=== PATIENT | male | born 1950 | race Caucasian/White ===

== ENCOUNTER 2018-01-09 12:45 | Inpatient (IN) | payer OTHER, MEDICARE ==
[2018-01-09 13:37] LABS: #Basophils 0.1 thou/uL (0.0-0.2); #Lymphocytes 0.5 thou/uL (1.20-3.40); #Monocytes 0.5 thou/uL (0.11-0.59); #Neutrophils 3.7 thou/uL (1.40-6.50); %Basophils 1.1 % (0.0-1.0); %Eosinophils 0.2 % (0.0-10.0); %Lymphocytes 10.7 % (21.0-51.0); %Monocytes 10.1 % (0.0-10.0); %Neutrophils 77.8 % (42.0-75.0); Hemoglobin 11.7 g/dL (14.0-18.0); Mean Corpuscular HGB CONC 31.9 g/dL (32.0-36.0); Mean Corpuscular Hemoglobin 24.4 pg (27.0-31.0); Mean Corpuscular Volume 76.3 fl (80.0-94.0); Mean Platelet Volume 10.5 fL (7.4-10.4); Platelet Count 151 thou/uL (130-400); RBC Distribution Width 17.2 % (11.5-14.5); White Blood Cell (WBC) Count 4.8 thou/uL (4.8-10.8)
[2018-01-09 13:47] LABS: ALT (SGPT) 33 U/L (8-55); AST (SGOT) 41 U/L (5-34); Albumin 3.4 g/dL (3.4-4.8); Alkaline Phosphatase 124 U/L (40-150); Anion Gap 14 mmol/L (10-20); BUN (Urea Nitrogen) 11 mg/dL (8.4-25.7); Bilirubin, Total 0.6 mg/dL (0.2-1.2); Calc. Creatinine Clearance 0 mL/min (70-130); Calcium 8.6 mg/dL (7.8-10.44); Carbon Dioxide 21 mmol/L (23-31); Chloride 105 mmol/L (98-107); Estimated GFR-MDRD Greater than 90; Globulin 3.9 g/dL (2.4-3.5); Glucose 161 mg/dL (80-115); Lipase 33 U/L (8-78); Potassium 3.6 mmol/L (3.5-5.1); Protein, Total 7.3 g/dL (5.8-8.1); Sodium 136 mmol/L (136-145)
--- NOTE | 2018-01-09 15:54 | CT ---
CT OF THE ABDOMEN AND PELVIS WITH IV CONTRAST: INDICATION: Abdominal pain with distention. FINDINGS: There is a large right pleural effusion and right basilar atelectasis. There is cirrhotic morphology of the liver with changes of portal hypertension. The spleen measures 14 cm. There is scattered ascites. Pancreas and adrenal glands appear within normal limits. The ki dneys are normal appearing. The degree of ascites slightly limits evaluation of bowel wall thickenin g. There are no overt changes of bowel obstruction. There is scattered degenerative and osteoarthritic change. No definite acute osseous abnormality is evident. IMPRESSION: 1. Findings of cirrhosis with portal hypertension. There is mild ascites. 2. Large right pleural effusion with right basilar atelectasis. POS: [facility]
[2018-01-09 16:29] LABS: Bilirubin Negative (Negative); Blood, Urine Negative (Negative); Clarity CLEAR (Clear); Glucose, Urine (Dipstick) Negative (Negative); Leukocyte Negative (Negative); Nitrite Negative (Negative); Protein, Urine (Dipstick) Negative (Neg-Trace); Urobilinogen 0.2 mg/dL (0.2-1.0); pH, Urine 6.5 (5.0-9.0)
[2018-01-09] MEDS ORDERED: Furosemide 40 MG/4 ML VIAL SLOW IVP SCH (20:00)
[2018-01-09] MEDS ORDERED: Dextrose 5% in Water 1,000 ML IV PRN (21:55)
[2018-01-09] MEDS ORDERED: HumaLOG 300 UNITS/3 ML VIAL SC PRN (21:55)
[2018-01-09] MEDS ORDERED: Dextrose 50% Abboject 50 ML SYRINGE SLOW IVP PRN (21:55)
[2018-01-10 00:22] VITALS: BMI 23.8
--- NOTE | 2018-01-10 02:22 | HP ---
PRIMARY CARE PHYSICIAN: Dr. Peralta. TIME OF EVALUATION: 9:35 p.m. CODE STATUS: FULL CODE. CHIEF COMPLAINT: "I passed out." HISTORY OF PRESENT ILLNESS: A 67-year-old male with past medical history of hepatitis, cirrhosis of the liver, patient came to the hospital after having 6 weeks of intermittent diarrhea. These symptoms were reported as moderate-to- severe, patient reported that yesterday he had an episode of feeling dizzy and almost passing out, the patient reported that he has also had significant weight loss in the past 6 weeks. Of note his GI doctor is Dr. Mir. Symptoms were reported as severe. Also, reported associated abdominal pain and nausea. REVIEW OF SYSTEMS: Constitutional: Patient reported no fever, no chills, he did report generalized weakness. Respiratory: No cough, no sputum production, no shortness of breath. Cardiovascular: No chest pain or palpitation. No shortness of breath. Gastrointestinal: Patient reported nausea, diarrhea, abdominal pain. INFORMATION TECHNOLOGY DATA ANALYST: Occasional dizziness, syncope, no headache. Genitourinary: No burning with urination. Extremities: Bilateral leg swelling. All other systems reviewed were negative except for the findings mentioned above. PAST MEDICAL HISTORY: Positive for cirrhosis of the liver, diabetes type 2, history of GI bleed, history of hepatitis C. FAMILY HISTORY: Patient has a history of cancer in the father's side. PAST SURGICAL HISTORY: The patient has surgical history of tonsillectomy, surgery upon the veins in esophagus, right knee surgeries. PSYCHIATRIC HISTORY: No previous psychiatric history. SOCIAL HISTORY: Lives at home. No alcohol, no drugs. No smoking history. ALLERGIES: No known drug allergies. REPORTED MEDICATIONS: Patient takes at home metformin 500 mg q.24 hours, pioglitazone 15 mg, naproxen 500 mg, baclofen 20 mg, hydrocodone/acetaminophen 10 mg and 325 mg q.6 hours p.r.n. PHYSICAL EXAMINATION: VITAL SIGNS: On presentation, the patient's blood pressure 152/96, heart rate 92, respiratory rate 18, temperature 98.2. GENERAL: Patient is alert, oriented, no acute distress. HEENT: Eyes: Normal conjunctivae. Moist oral mucosa. RESPIRATORY: Bilateral air entry. No rales, no wheezing. Symmetric expansion. CARDIOVASCULAR: Normal rate, regular rhythm. No murmurs, no gallop. Bilateral leg edema. ABDOMEN: Distended, soft, normal bowel sounds. MUSCULOSKELETAL: Baseline range of motion and strength, no tenderness. SKIN: Warm and intact. No pallor, no rash, no redness. NEUROLOGIC: Baseline anxiety. No evidence of any new focal weakness. Baseline speech. Cranial nerves seem to be intact. PSYCHIATRIC: Mood is normal, no anxiety, oriented, optimal judgment. LABORATORY DATA: 1. Reviewed. Ammonia level is 33. 2. CBC: White count 4.8, hemoglobin 11.7, hematocrit 36.6, platelet count 151. Lipase 33. 3. Sodium 136, potassium 3.6, chloride 105, carbon dioxide 21, anion gap 14, BUN 11, creatinine 0.66, glucose 161, globulin 3.9. AST 41, ALT 33. IMAGING: CT scan was reviewed. The patient was found to have right pleural effusion of 50%, mild scattered ascites, no small-bowel obstruction. Report given by radiologist. ASSESSMENT AND PLAN: Syncope,. unclear etiology , could be vasovagal, from GI conditions, will monitor, work up depending on initial results. 1. Decompensated cirrhosis, patient has abdominal distention, fluid retention, this was secondary to hepatitis C that is in remission now, reconcile medicine. 2. Episode of diarrhea, unclear etiology, could be secondary to bowel edema from cirrhosis, send stool samples for cultures and wbc 3. Chronic microcytic anemia, likely related to chronic blood loss, reconciled home medications.no need for inpatient intervention. 4. Uncontrolled diabetes, BS is 161, hyperglycemia. reconciled home medications, sliding scale for optimal control. 5. Deep venous thrombosis prophylaxis. MTDD
[2018-01-10] MEDS ORDERED: Artificial Tears 18 DROP/0.9 ML EA EYE PRN (06:53)
[2018-01-10] MEDS ORDERED: Mag-Al 1200 mg/1200 mg/30 ML UDCUP PO PRN (06:53)
[2018-01-10] MEDS ORDERED: Zolpidem Tartrate 5 MG TAB PO PRN (06:53)
[2018-01-10] MEDS ORDERED: Sodium Chloride 0.65% Nasal 44 ML BOT EA NARE PRN (06:53)
[2018-01-10] MEDS ORDERED: hydrALAZINE 20 MG/ML VIAL SLOW IVP PRN (06:53)
[2018-01-10] MEDS ORDERED: Loratadine 10 MG TAB PO PRN (06:53)
[2018-01-10] MEDS ORDERED: Ondansetron HCl/PF 4 MG/2 ML Vial IVP PRN (06:53)
[2018-01-10] MEDS ORDERED: Chloraseptic Spray 180 ml Bottle PO PRN (06:53)
[2018-01-10] MEDS ORDERED: Loperamide HCl 2 MG CAP PO PRN (06:53)
[2018-01-10] MEDS ORDERED: Eucerin (Mineral Oil/Petrolatum,White) 30 gm Jar TOP PRN (06:53)
[2018-01-10] MEDS ORDERED: Milk Of Magnesia 30 ML UDCUP PO PRN (06:53)
[2018-01-10] MEDS ORDERED: Ondansetron ODT 4 MG TAB PO PRN (06:53)
[2018-01-10] MEDS ORDERED: Acetaminophen 325 MG TAB PO PRN (06:53)
[2018-01-10] MEDS ORDERED: Diabetic Tussin 200 MG/10 ML UDCUP PO PRN (06:53)
[2018-01-10] MEDS ORDERED: HumaLOG 300 UNITS/3 ML VIAL SC PRN (07:00)
[2018-01-10] MEDS ORDERED: Spironolactone 100 MG TAB PO SCH (08:00)
[2018-01-10] MEDS ORDERED: Naproxen 500 MG TAB PO SCH (09:00)
[2018-01-10] MEDS ORDERED: Multivit, Therapeutic 1 TAB PO SCH (09:00)
[2018-01-10] MEDS: Ferrous Sulfate 325 MG TAB PO SCH (10:03)
[2018-01-10] MEDS: Famotidine 20 MG TAB PO SCH ×2 (10:04→19:57)
[2018-01-10] MEDS: Morphine ER 30 MG TAB PO SCH ×3 (10:04→19:57)
[2018-01-10] MEDS: Baclofen 10 MG TAB PO SCH ×2 (10:04→19:57)
[2018-01-10] MEDS: Nadolol 40 MG TAB PO SCH (10:06)
[2018-01-10] MEDS: Multivitamin W/ Minerals 1 TAB PO SCH (10:06)
[2018-01-10] MEDS: Polyethylene Glycol 3350 17 GM Packet PO SCH (10:07)
--- NOTE | 2018-01-10 10:13 | PDOC.PN ---
- Subjective Encounter Start Date: 01/10/18 Encounter Start Time: 08:40 -: old records requested/rev Patient seen and examined for cirrhosis, pt has change BM habit, has richard loss , feels weak, No overnight events - Objective MAR Reviewed: Yes Vital Signs & Weight: Vital Signs (12 hours) Temp Pulse Resp BP Pulse Ox 01/10/18 07:25 98.0 F 75 20 150/81 H 95 01/10/18 04:33 95 01/10/18 04:00 98.5 F 69 18 157/84 H 96 01/10/18 00:00 98.2 F 86 18 160/77 H 92 L Weight Weight 171 lb 4.8 oz Result Diagrams: 01/09/18 13:19 01/09/18 13:19 Additional Labs: Accuchecks 01/10/18 01/09/18 04:49 21:18 POC Glucose 115 H 84 Phys Exam - Physical Examination Constitutional: NAD HEENT: PERRLA, moist MMs, sclera anicteric Neck: no JVD, supple Respiratory: no wheezing, no rhonchi reduced air entry at right side Cardiovascular: RRR, no significant murmur, no rub Gastrointestinal: soft, non-tender, no distention, positive bowel sounds Musculoskeletal: pulses present, edema present Neurological: non-focal, normal sensation, moves all 4 limbs Lymphatic: no nodes Psychiatric: normal affect, A&O x 3 Skin: no rash, normal turgor, cap refill <2 seconds Dx/Plan (1) Pleural effusion on right Code(s): J90 - PLEURAL EFFUSION, NOT ELSEWHERE CLASSIFIED Status: Acute (2) Cirrhosis of liver with ascites Code(s): K74.60 - UNSPECIFIED CIRRHOSIS OF LIVER; R18.8 - OTHER ASCITES Status : Chronic (3) DM type 2 (diabetes mellitus, type 2) Status: Chronic Qualifiers: (4) Hepatitis C Code(s): B19.20 - UNSPECIFIED VIRAL HEPATITIS C WITHOUT HEPATIC COMA Status: Chronic Qualifiers: (5) Microcytic anemia Code(s): D50.9 - IRON DEFICIENCY ANEMIA, UNSPECIFIED Status: Chronic (6) Portal hypertension Code(s): K76.6 - PORTAL HYPERTENSION Status: Chronic (7) Chronic diarrhea Code(s): K52.9 - NONINFECTIVE GASTROENTERITIS AND COLITIS, UNSPECIFIED Status : Chronic (8) Weight loss Status: Chronic - Plan cont current plan of care * will add lasix 20 mg IV bid * will add aldactone 50 mg po daily * will add corgard 20 mg po daily * medication reviewed as below * symptomatic treatment * GI consulted * may need colonoscopy * will monitor labs. Review of Systems - Review of Systems Constitutional: weakness. negative: fever, chills, sweats, malaise, other ENT: negative: Ear Pain, Ear Discharge, Nose Pain, Nose Discharge, Nose Congestion, Mouth Pain, Mouth Swelling, Throat Pain, Throat Swelling, Other Respiratory: negative: Cough, Dry, Shortness of Breath, Hemoptysis, SOB with Excertion, Pleuritic Pain, Sputum, Wheezing Cardiovascular: negative: chest pain, palpitations, orthopnea, paroxysmal nocturnal dyspnea, edema, light headedness, other Gastrointestinal: Diarrhea. negative: Nausea, Vomiting, Abdominal Pain, Constipation, Melena, Hematochezia, Other Genitourinary: negative: Dysuria, Frequency, Incontinence, Hematuria, Retention , Other Musculoskeletal: negative: Neck Pain, Shoulder Pain, Arm Pain, Back Pain, Hand Pain, Leg Pain, Foot Pain, Other Skin: negative: Rash, Lesions, Carson, Bruising, Other - Medications/Allergies Allergies/Adverse Reactions: Allergies Allergy/AdvReac Type Severity Reaction Status Date / Time codeine AdvReac Intermediate Verified 01/09/18 21:42 Medications: Current Medications Acetaminophen (Tylenol) 650 mg PO Q4H PRN PRN Reason: Headache/Fever or Mild Pain Al Hydroxide/Mg Hydroxide (Maalox) 15 ml PO Q4H PRN PRN Reason: Heartburn or Indigestion Artificial Tears (Tears Naturale) 0 drop EA EYE PRN PRN PRN Reason: Dry Eyes Baclofen (Lioresal) 20 mg PO BID [place] Dextrose/Water (Dextrose 50%) 25 gm SLOW IVP PRN PRN PRN Reason: Hypoglycemia Famotidine (Pepcid) 20 mg PO BID [place] Ferrous Sulfate (Feosol) 325 mg PO QAM-WM [facility] Furosemide (Lasix) 40 mg SLOW IVP 0600,1400 [place] Glucagon (Glucagon) 1 mg IM PRN PRN PRN Reason: Hypoglycemia Guaifenesin (Robitussin Sf) 200 mg PO Q4H PRN PRN Reason: Cough Hydralazine HCl (Apresoline) 10 mg SLOW IVP Q4H PRN PRN Reason: Systolic BP > 180 Dextrose/Water (D5w) 1,000 mls @ 0 mls/hr IV .Q0M PRN; As Directed PRN Reason: Hypoglycemia Insulin Human Lispro (Humalog) 0 units SC .MODERATE SLIDING SC PRN PRN Reason: Moderate Correctional Scale Insulin Human Lispro (Humalog) 0 units SC .BEDTIME SLIDING SC PRN PRN Reason: Bedtime Correctional Scale Iron/Minerals/Multivitamins (Theragran M) 1 tab PO DAILY [place] Loperamide HCl (Imodium) 2 mg PO PRN PRN PRN Reason: Diarrhea/Loose Stools Loratadine (Claritin) 10 mg PO DAILYPRN PRN PRN Reason: Sinus Symptoms Magnesium Hydroxide (Milk Of Magnesium) 30 ml PO DAILYPRN PRN PRN Reason: Constipation Mineral Oil/White Petrolatum (Eucerin Cream) 0 gm TOP BIDPRN PRN PRN Reason: Dry Skin Morphine Sulfate (Morphine Sulfate) 4 mg SLOW IVP Q4H PRN PRN Reason: Pain Last Admin: 01/09/18 20:28 Dose: 4 mg Morphine Sulfate (Ms Contin) 30 mg PO TID [facility] Nadolol (Corgard) 20 mg PO DAILY [facility] Ondansetron HCl (Zofran Odt) 4 mg PO Q6H PRN PRN Reason: Nausea/Vomiting Ondansetron HCl (Zofran) 4 mg IVP Q6H PRN PRN Reason: Nausea/Vomiting Phenol (Chloraseptic [place] 180 Ml Bot) 0 ml PO PRN PRN PRN Reason: Sore Throat Polyethylene Glycol (Miralax) 17 gm PO DAILY [facility] Sodium Chloride (Flush - Normal Saline) 10 ml IVF Q12HR [place] Last Admin: 01/09/18 20:32 Dose: 10 ml Sodium Chloride (Flush - Normal Saline) 10 ml IVF PRN PRN PRN Reason: Saline Flush Sodium Chloride ([place] Nasal [place] 0.65%) 0 ml EA NARE QIDPRN PRN PRN Reason: Nasal Congestion Spironolactone (Aldactone) 100 mg PO QAM-WM [facility] Zolpidem Tartrate (Ambien) 5 mg PO HSPRN PRN PRN Reason: Insomnia
--- NOTE | 2018-01-10 12:05 | CON ---
DATE OF CONSULTATION: 01/10/2018 REFERRING PHYSICIAN: Dr. Jimmy Johnson, [facility]. REASON FOR CONSULTATION: Abdominal pain, intermittent diarrhea. HISTORY OF PRESENT ILLNESS: Mr. Hebert Early is a 67-year-old male who is known to me from before. The patient is known to have chronic hepatitis genotype C. The patient initially was treat ed with interferon and also ribavirin and did not respond to treatment. Subsequently, he was also tr ied on various combinations including a protease inhibitor: Finally he was able to get treatment wit h Harvoni and ribavirin and hepatitis C RNA came back negative. However, in the interim, he develope d liver cirrhosis. The patient has had GI bleed and has had banding in the past. The patient also h ad a colonoscopy because of bleeding and was found to have bleeding AVM in the colon and it was caute rized. The patient has been having abdominal pain and diarrhea over the last about almost 6 weeks. His symptoms started following a trip to [place] at the end of 10/2017. His symptoms star jesse after a few days. Apparently his and children also had the same illness and they also ____. However, Hebert's symptoms have been fluctuating. He has had good days where he has no diarrhea, an d other days he has been having diarrhea off and on. The patient came to see me I believe 3 weeks a go and was sent for stool exam. The stool for Campylobacter culture came back negative. Although Sh iga toxin negative. Unfortunately, by the time he gave a specimen the stool was formed and Clostridi um difficile could not be done. The patient was seen in my office 3 days ago because of diarrhea. A t that time, he did not have any abdominal pain. He had 4 stools on Monday, but he had no stool on M on and was passing mostly flatus. His abdomen was distended and did show ascites. He was schedul ed outpatient for a CAT scan tomorrow in the office. In the meantime, yesterday his diarrhea got wor se and he went to the bathroom almost 15 times. Stools were watery. No blood in the stool. Some me joshua. He has no fever. He was also having abdominal pain. He suddenly had a fainting spell and was brought to the ER. He has had stool exam done, stool came back negative for C. difficile. Since ad mission to the floor, he has had no stool. He has not had any nausea. His abdominal pain is more di ffuse than before. Abdominal CAT scan done last night showed ascites and also right pleural effusion . The patient has had no diarrhea today. He had no similar episodes in the past. No recent antibio tic intake except for a dose of Levaquin about 2 weeks ago. No other relevant history. ALLERGIES: None. SOCIAL HISTORY: The patient does not smoke or drink alcohol. PAST MEDICAL HISTORY: 1. Diabetes mellitus. 2. Chronic hepatitis C, status post treatment with resolution. 3. Small varices. 4. Colonic AVMs. 5. Liver cirrhosis. MEDICATIONS: Metformin, pioglitazone, baclofen, hydrocodone and acetaminophen. REVIEW OF SYSTEMS: Ten system review is remarkable for nausea and vomiting off and on, diarrhea off and on almost going on for nearly 7 weeks. Stool studies were negative. PHYSICAL EXAMINATION: GENERAL: He appears comfortable. He is awake, alert, and oriented to time and place and person. VITAL SIGNS: Stable. Temperature 98.2 degrees Fahrenheit. Pulse is 92, blood pressure 150/80. HEENT: Conjunctivae clear. NECK: Supple. No adenitis or thyromegaly noted. CARDIOVASCULAR: First and second sounds normal. LUNGS: Clear to auscultation. ABDOMEN: Mildly distended, but soft to palpate. Abdomen is mildly tender diffusely. There is no re bound or guarding. Bowel sounds normal. EXTREMITIES: No edema. LABORATORY: CBC shows no leukocytosis. WBC 4800, hemoglobin 11.7, hematocrit 36.6, platelet count o f 151,000. Lipase 33, glucose is 161. Sodium 136, potassium 3.6, chloride 105, bicarbonate 21, BUN 11, creatinine 0.66, ALT 33, AST 44. Abdominal CAT scan shows ascites, no colitis seen. CLINICAL IMPRESSION: 1. A 67-year-old male with history of diarrhea, abdominal pain, nausea and vomiting. The patient has had negative stool studies done as outpatient included for Campylobacter, Shigella, Esche richia coli, etc. His Clostridium difficile is negative on admission. His symptoms are suggestive o f infectious diarrhea, but his stools studies were negative. He has also been treated with some Flag yl and Levaquin in the recent past. 2. Ascites, liver cirrhosis. 3. Pleural effusion. 4. Diabetes mellitus. 5. Hepatitis C, status post treatment. RECOMMENDATIONS: Ultrasound guided paracentesis and obtain a culture from fluid, ____ for the time tyra narayanan. His stool studies have been basically negative. If his diarrhea persists, may have to conside r a colonoscopy. Although he had a colonoscopy not too long ago, at that time it was actually negati ve.
[2018-01-10] MEDS ORDERED: Furosemide 40 MG/4 ML VIAL SLOW IVP SCH (14:00)
[2018-01-10] MEDS: Furosemide 20 MG/2 ML VIAL SLOW IVP SCH (14:41)
[2018-01-10 15:05] LABS: INR-International Normal Ratio 1.1; Prothrombin Time 14.8 SEC (12.0-14.7)
[2018-01-10] MEDS ORDERED: Sodium Bicarbonate 2.5 MEQ/5 ML VIAL ONE (15:05)
[2018-01-10] MEDS ORDERED: Lidocaine 1% PF 5 ML VIAL ONE (15:05)
--- NOTE | 2018-01-10 15:27 | ULT ---
LIMITED ABDOMINAL ULTRASOUND: Date: 01-10-18 History: Evaluate ascites volume for potential diagnostic paracentesis. FINDINGS: Sonographic assessment of the abdomen/pelvis is provided. The hepatic parenchyma demonstrates a scler otic contour. There is scant free fluid in the right upper and right lower quadrant. There is a right pleural effusion. There is not enough ascites to perform a paracentesis safely and thus, the procedu re was not performed. IMPRESSION: 1. Small volume ascites within the abdomen/pelvis, not of adequate volume for paracentesis. 2. Findings suggestion hepatic cirrhosis. 3. Incompletely assessed right pleural effusion. POS: [facility]
[2018-01-10] MEDS: HumaLOG 300 UNITS/3 ML VIAL SC PRN (17:50)
--- NOTE | 2018-01-10 21:31 | PRG ---
DATE OF SERVICE: 01/10/2018 SUBJECTIVE: This is a 67-year-old with liver cirrhosis; chronic hepatitis C, has been walt jesse in the past. The patient has been having diarrhea, nausea, and vomiting off and on end of 2017. The patient has had negative stool study as an outpatient. The patient was seen in my office couple of days ago. At that time, his diarrhea was controlled. He had no diarrhea when he saw me on Monday. The patient developed severe diarrhea and also passed out yesterday. He came to the ER, laura almeida an abdominal CAT scan. CAT scan showed minimal ascites and also right pleural effusion. An attemp t was made to do a tap of the ascitic fluid, but as per radiologist; not show any fluid to ai n the fluid. The patient had one stool today. The C. difficile came back negative. The patient is tolerating diet. It is not very clear why he is having recurrent diarrhea, nausea, and vomiting. Th e patient has had stool studies for C. difficile, negative; culture for Campylobacter, E. coli, Shige lla, even it came back negative. RECOMMENDATIONS: 1. Repeat stool for ova and parasites and also cryptosporidium. 2. Low-dose diuretics because of the ascites and pleural effusion. 3. We will refer the patient back to liver transplant program for re-evaluation. The patient gone 2 years ago. At the present, his MELD score is not very high and he is really not a candidate for kiarra er transplant at the present time. Anyway, we will send the patient back to liver transplant program .
[2018-01-11] MEDS: HumaLOG 300 UNITS/3 ML VIAL SC PRN ×3 (05:58→16:00)
[2018-01-11] MEDS: Furosemide 20 MG/2 ML VIAL SLOW IVP SCH (05:58)
[2018-01-11] MEDS: Morphine ER 30 MG TAB PO SCH ×3 (08:28→20:41)
[2018-01-11] MEDS: Famotidine 20 MG TAB PO SCH ×2 (08:29→20:41)
[2018-01-11] MEDS: Nadolol 40 MG TAB PO SCH (08:30)
[2018-01-11] MEDS: Baclofen 10 MG TAB PO SCH ×2 (08:30→20:40)
[2018-01-11] MEDS: Multivitamin W/ Minerals 1 TAB PO SCH (08:30)
[2018-01-11] MEDS: Ferrous Sulfate 325 MG TAB PO SCH (08:31)
[2018-01-11] MEDS: Spironolactone 25 MG TAB PO SCH (08:31)
[2018-01-11] MEDS: Polyethylene Glycol 3350 17 GM Packet PO SCH (08:32)
--- NOTE | 2018-01-11 11:38 | PDOC.PN ---
- Subjective Encounter Start Date: 01/11/18 Encounter Start Time: 08:45 Patient seen and examined for diarrhoea. c/o gas sensation. No overnight events - Objective MAR Reviewed: Yes Vital Signs & Weight: Vital Signs (12 hours) Temp Pulse Resp BP Pulse Ox 01/11/18 08:00 98.2 F 59 L 18 01/11/18 07:07 98.2 F 59 L 18 155/73 H 94 L 01/11/18 00:03 98.1 F 60 18 164/94 H 94 L Weight Admit Weight 171 lb 4.8 oz Weight 171 lb 4.8 oz Result Diagrams: 01/09/18 13:19 01/09/18 13:19 Additional Labs: Accuchecks 01/11/18 01/10/18 01/10/18 05:15 19:37 15:53 POC Glucose 179 H 73 218 H 01/10/18 11:03 POC Glucose 142 H Phys Exam - Physical Examination Constitutional: NAD HEENT: PERRLA, moist MMs, sclera anicteric Neck: no JVD, supple Respiratory: no wheezing, no rales, no rhonchi Cardiovascular: RRR, no significant murmur, no rub Gastrointestinal: soft, non-tender, no distention, positive bowel sounds Musculoskeletal: no edema, pulses present Neurological: non-focal, normal sensation, moves all 4 limbs Psychiatric: normal affect, A&O x 3 Skin: no rash, normal turgor Dx/Plan (1) Pleural effusion on right Code(s): J90 - PLEURAL EFFUSION, NOT ELSEWHERE CLASSIFIED Status: Acute (2) Cirrhosis of liver with ascites Code(s): K74.60 - UNSPECIFIED CIRRHOSIS OF LIVER; R18.8 - OTHER ASCITES Status : Chronic (3) DM type 2 (diabetes mellitus, type 2) Status: Chronic Qualifiers: (4) Hepatitis C Code(s): B19.20 - UNSPECIFIED VIRAL HEPATITIS C WITHOUT HEPATIC COMA Status: Chronic Qualifiers: (5) Microcytic anemia Code(s): D50.9 - IRON DEFICIENCY ANEMIA, UNSPECIFIED Status: Chronic (6) Portal hypertension Code(s): K76.6 - PORTAL HYPERTENSION Status: Chronic (7) Chronic diarrhea Code(s): K52.9 - NONINFECTIVE GASTROENTERITIS AND COLITIS, UNSPECIFIED Status : Chronic (8) Weight loss Status: Chronic - Plan cont current plan of care * paracentesis is not possible due to very scan fluid * medication reviewed as below * symptomatic treatment * spoke with GI * suspecting irritable bowels syndrome * will add amitriptilline. Review of Systems - Review of Systems Constitutional: negative: fever, chills, sweats, weakness, malaise, other Eyes: negative: Pain, Vision Change, Conjunctivae Inflammation, Eyelid Inflammation, Redness, Other ENT: negative: Ear Pain, Ear Discharge, Nose Pain, Nose Discharge, Nose Congestion, Mouth Pain, Mouth Swelling, Throat Pain, Throat Swelling, Other Respiratory: negative: Cough, Dry, Shortness of Breath, Hemoptysis, SOB with Excertion, Pleuritic Pain, Sputum, Wheezing Cardiovascular: negative: chest pain, palpitations, orthopnea, paroxysmal nocturnal dyspnea, edema, light headedness, other Gastrointestinal: Diarrhea. negative: Nausea, Vomiting, Abdominal Pain, Constipation, Melena, Hematochezia, Other Genitourinary: negative: Dysuria, Frequency, Incontinence, Hematuria, Retention , Other Musculoskeletal: negative: Neck Pain, Shoulder Pain, Arm Pain, Back Pain, Hand Pain, Leg Pain, Foot Pain, Other Skin: negative: Rash, Lesions, Carson, Bruising, Other - Medications/Allergies Allergies/Adverse Reactions: Allergies Allergy/AdvReac Type Severity Reaction Status Date / Time codeine AdvReac Intermediate Verified 01/09/18 21:42 Medications: Current Medications Acetaminophen (Tylenol) 650 mg PO Q4H PRN PRN Reason: Headache/Fever or Mild Pain Al Hydroxide/Mg Hydroxide (Maalox) 15 ml PO Q4H PRN PRN Reason: Heartburn or Indigestion Artificial Tears (Tears Naturale) 0 drop EA EYE PRN PRN PRN Reason: Dry Eyes Baclofen (Lioresal) 20 mg PO BID [facility] Last Admin: 01/11/18 08:30 Dose: 20 mg Dextrose/Water (Dextrose 50%) 25 gm SLOW IVP PRN PRN PRN Reason: Hypoglycemia Famotidine (Pepcid) 20 mg PO BID [facility] Last Admin: 01/11/18 08:29 Dose: 20 mg Ferrous Sulfate (Feosol) 325 mg PO QAM-WM [facility] Last Admin: 01/11/18 08:31 Dose: 325 mg Furosemide (Lasix) 20 mg SLOW IVP 0600,1400 [facility] Last Admin: 01/11/18 05:58 Dose: 20 mg Glucagon (Glucagon) 1 mg IM PRN PRN PRN Reason: Hypoglycemia Guaifenesin (Robitussin Sf) 200 mg PO Q4H PRN PRN Reason: Cough Hydralazine HCl (Apresoline) 10 mg SLOW IVP Q4H PRN PRN Reason: Systolic BP > 180 Dextrose/Water (D5w) 1,000 mls @ 0 mls/hr IV .Q0M PRN; As Directed PRN Reason: Hypoglycemia Insulin Human Lispro (Humalog) 0 units SC .MODERATE SLIDING SC PRN PRN Reason: Moderate Correctional Scale Last Admin: 01/11/18 05:58 Dose: 2 unit Insulin Human Lispro (Humalog) 0 units SC .BEDTIME SLIDING SC PRN PRN Reason: Bedtime Correctional Scale Iron/Minerals/Multivitamins (Theragran M) 1 tab PO DAILY [facility] Last Admin: 01/11/18 08:30 Dose: 1 tab Loperamide HCl (Imodium) 2 mg PO PRN PRN PRN Reason: Diarrhea/Loose Stools Loratadine (Claritin) 10 mg PO DAILYPRN PRN PRN Reason: Sinus Symptoms Magnesium Hydroxide (Milk Of Magnesium) 30 ml PO DAILYPRN PRN PRN Reason: Constipation Mineral Oil/White Petrolatum (Eucerin Cream) 0 gm TOP BIDPRN PRN PRN Reason: Dry Skin Morphine Sulfate (Morphine Sulfate) 4 mg SLOW IVP Q4H PRN PRN Reason: Pain Last Admin: 01/09/18 20:28 Dose: 4 mg Morphine Sulfate (Ms Contin) 30 mg PO TID [facility] Last Admin: 01/11/18 08:28 Dose: 30 mg Nadolol (Corgard) 20 mg PO DAILY [facility] Last Admin: 01/11/18 08:30 Dose: 20 mg Ondansetron HCl (Zofran Odt) 4 mg PO Q6H PRN PRN Reason: Nausea/Vomiting Ondansetron HCl (Zofran) 4 mg IVP Q6H PRN PRN Reason: Nausea/Vomiting Phenol (Chloraseptic [place] 180 Ml Bot) 0 ml PO PRN PRN PRN Reason: Sore Throat Polyethylene Glycol (Miralax) 17 gm PO DAILY [facility] Last Admin: 01/11/18 08:32 Dose: Not Given Sodium Chloride (Flush - Normal Saline) 10 ml IVF Q12HR [facility] Last Admin: 01/11/18 08:32 Dose: 10 ml Sodium Chloride (Flush - Normal Saline) 10 ml IVF PRN PRN PRN Reason: Saline Flush Sodium Chloride ([place] Nasal [place] 0.65%) 0 ml EA NARE QIDPRN PRN PRN Reason: Nasal Congestion Spironolactone (Aldactone) 50 mg PO QAM-WM [facility] Last Admin: 01/11/18 08:31 Dose: 50 mg Zolpidem Tartrate (Ambien) 5 mg PO HSPRN PRN PRN Reason: Insomnia
--- NOTE | 2018-01-12 04:41 | PRG ---
DATE OF SERVICE: 01/11/2018 SUBJECTIVE: This is a 67-year-old male with diabetes mellitus, liver cirrhosis, also with recurrent nausea and vomiting, and also syncopes at home. The patient has had previous stool studies , came back negative. Since admission, the patient has had only one stool and had no more stool. Th e C. diff toxin is negative. He has no more nausea, no more vomiting. He is constantly passing flat us and had some belching. He is tolerating diet. PHYSICAL EXAMINATION: GENERAL: Appears comfortable. VITAL SIGNS: Pulse is 55, blood pressure is 143/68. Afebrile. CARDIOVASCULAR SYSTEM AND LUNGS: Within normal limits. ABDOMEN: Soft. Abdomen is surprisingly nontender even to deep palpation. Abdomen is mildly distend ed. There is no rebound or guarding. LABORATORY DATA: None from today except blood sugar of 203. The stool studies were reviewed and sto ol studies actually shows Campylobacter positive. We will start him on antibiotics. We will also try to obtain . The patient does well without a ny nausea or vomiting, no diarrhea may consider discharge home on p.o. antibiotics.
[2018-01-12] MEDS: Spironolactone 25 MG TAB PO SCH (09:03)
[2018-01-12] MEDS: Famotidine 20 MG TAB PO SCH ×2 (09:04→20:48)
[2018-01-12] MEDS: Azithromycin 250 MG TAB PO SCH (09:04)
[2018-01-12] MEDS: Multivitamin W/ Minerals 1 TAB PO SCH (09:05)
[2018-01-12] MEDS: Furosemide 20 MG TAB PO SCH (09:05)
[2018-01-12] MEDS: Morphine ER 30 MG TAB PO SCH ×3 (09:05→20:48)
[2018-01-12] MEDS: Baclofen 10 MG TAB PO SCH ×2 (09:05→20:48)
[2018-01-12] MEDS: Ferrous Sulfate 325 MG TAB PO SCH (09:06)
[2018-01-12] MEDS: Amitriptyline HCl 25 MG TAB PO SCH (09:06)
[2018-01-12] MEDS: Polyethylene Glycol 3350 17 GM Packet PO SCH (09:09)
[2018-01-12] MEDS: Nadolol 40 MG TAB PO SCH (09:09)
--- NOTE | 2018-01-12 09:19 | PQF ---
CLINICAL DOCUMENTATION IMPROVEMENT CLARIFICATION FORM: ICD-10 Updated PLEASE DO AN ADDENDUM TO THE PROGRESS NOTE WITH ANY DOCUMENTATION UPDATES OR ADDITIONS AND CARRY THROUGH TO DC SUMMARY. THANK YOU. Date: 01/11 ATTN: DR. DEBORAH PENNY Please exercise your independent, professional judgment in responding to the clarification form. Clinical indicators are provided on the bottom of this form for your review. Please check appropriate box(s): [ x ] Protein Calorie Malnutrition: [x ] Mild [ ] Moderate [ ] Severe [ ] Other Malnutrition (please specify) __ [ ] Other diagnosis [ ] Unable to determine CLINICAL INDICATORS - SIGNS / SYMPTOMS / LABS BMI: 23.9 ER PHYSICIAN DOCUMENTATION 01/09: FAMILY REPORTS 30 LB WT LOSS IN 6 WEEKS; 6 WEEKS OF INTERMITTENT DIARRHEA PHYSICIAN H&P DOCUMENTATION 01/09: HX OF PRESENT ILLNESS: ...THE PT REPORTED THAT HE HAS ALSO HAD SIGNIFICANT WEIGHT LOSS IN THE PAST 6 WKS ATTENDING PN 01/10 & : DX/PLAN: 2) CIRRHOSIS OF LIVER W/ASCITES; 8) CHRONIC WEIGHT LOSS NUTRITION ASSESSMENT 01/10: 14% WEIGHT LOSS IN 6 WEEKS; POOR PO INTAKE, ALTERNATING CONSTIPATION/DIARRHEA FOR 6 WEEKS; MUSCLE WASTING NOTED TO TEMPLES. PT WEIGHED 197 LBS PRIOR TO S/S STARTING, AND LOST DOWN TO 169 LBS NOTED AT THIS RECENT DOCTOR'S APPT. RISK FACTORS: DIARRHEA X6 WKS CIRRHOSIS OF LIVER W/ASCITES POOR PO INTAKE FOR 6 WEEKS TREATMENT: NUTRITION ASSESSMENT 01/10 NUTRITIONAL SUPPLEMENTS (GLUCERNA BID, 01/10 - PRESENT) Moderate Malnutrition (in acute illness) Energy Intake: <75% of estimated energy requirement for > 7 days Weight Loss: 1-2%/1 week; 5%/ 1 month; 7.5%/3 months Other: mild body fat loss; mild muscle mass loss; mild fluid accumulation; Severe Malnutrition (in acute illness) Energy Intake: < 50% of estimated energy requirement for > 5 days Weight Loss: >1-2%/1 week; >5%/1 month; >7.5%/3 months Other: moderate body fat loss; moderate muscle mass loss; moderate- severe fluid accumulation; measurably reduced communications advisor strength Moderate Malnutrition (in chronic illness) Energy Intake: <75% of estimated energy requirement for >1 month Weight Loss: 5%/1 month; 7.5%/3 months; 10%/6 months; 20%/1 year Other: mild body fat loss; mild muscle mass loss; mild fluid accumulation Severe Malnutrition (in chronic illness) Energy Intake: <75% of estimated energy requirement for >1 month Weight Loss: >5%/1 month; >7.5%/3 months; >10%/6 months; >20%/1 year Other: severe body fat loss; severe muscle mass loss; severe fluid accumulation; measurably reduced communications advisor strength THANK YOU! Heather (This form is maintained as a part of the permanent medical record) 2015 [employer]. All Rights Reserved Heather Markham RN, BSN [email or web address] Office: [phone] [email or web address]
[2018-01-12] MEDS: HumaLOG 300 UNITS/3 ML VIAL SC PRN (11:14)
--- NOTE | 2018-01-12 11:19 | PDOC.PN ---
- Subjective Encounter Start Date: 01/12/18 Encounter Start Time: 09:00 Patient seen and examined for diarrhoea. No new complaints. No overnight events - Objective MAR Reviewed: Yes Vital Signs & Weight: Vital Signs (12 hours) Temp Pulse Resp BP Pulse Ox 01/12/18 08:00 98.0 F 51 L 18 01/12/18 07:59 98.0 F 51 L 18 130/72 94 L 01/12/18 05:03 98.4 F 55 L 18 129/75 96 Weight Admit Weight 171 lb 4.8 oz Weight 171 lb 4.8 oz I&O: 01/11/18 01/12/18 01/13/18 06:59 06:59 06:59 Intake Total 1272 50 Balance 1272 50 Result Diagrams: 01/09/18 13:19 01/09/18 13:19 Additional Labs: Accuchecks 01/12/18 01/12/18 01/11/18 10:42 04:17 19:55 POC Glucose 279 H 147 H 90 01/11/18 01/11/18 15:46 10:26 POC Glucose 222 H 203 H Phys Exam - Physical Examination Constitutional: NAD HEENT: PERRLA, moist MMs, sclera anicteric Neck: no JVD, supple Respiratory: no wheezing, no rales, no rhonchi Cardiovascular: RRR, no significant murmur, no rub Gastrointestinal: soft, non-tender, no distention, positive bowel sounds Musculoskeletal: no edema, pulses present Neurological: non-focal, normal sensation, moves all 4 limbs Lymphatic: no nodes Psychiatric: normal affect, A&O x 3 Skin: no rash, normal turgor Dx/Plan (1) Pleural effusion on right Code(s): J90 - PLEURAL EFFUSION, NOT ELSEWHERE CLASSIFIED Status: Acute (2) Cirrhosis of liver with ascites Code(s): K74.60 - UNSPECIFIED CIRRHOSIS OF LIVER; R18.8 - OTHER ASCITES Status : Chronic (3) DM type 2 (diabetes mellitus, type 2) Status: Chronic Qualifiers: (4) Hepatitis C Code(s): B19.20 - UNSPECIFIED VIRAL HEPATITIS C WITHOUT HEPATIC COMA Status: Chronic Qualifiers: (5) Microcytic anemia Code(s): D50.9 - IRON DEFICIENCY ANEMIA, UNSPECIFIED Status: Chronic (6) Portal hypertension Code(s): K76.6 - PORTAL HYPERTENSION Status: Chronic (7) Weight loss Status: Chronic (8) Campylobacter diarrhea Code(s): A04.5 - CAMPYLOBACTER ENTERITIS Status: Acute - Plan cont current plan of care, continue antibiotics * start azithromycin for diarrhoea * will monitor today * if improving, will consider discharge tomorrow * I spoke with Dr Barajas, who agrees * medication reviewed as below * symptomatic treatment. Review of Systems - Review of Systems Eyes: negative: Pain, Vision Change, Conjunctivae Inflammation, Eyelid Inflammation, Redness, Other ENT: negative: Ear Pain, Ear Discharge, Nose Pain, Nose Discharge, Nose Congestion, Mouth Pain, Mouth Swelling, Throat Pain, Throat Swelling, Other Respiratory: negative: Cough, Dry, Shortness of Breath, Hemoptysis, SOB with Excertion, Pleuritic Pain, Sputum, Wheezing Cardiovascular: negative: chest pain, palpitations, orthopnea, paroxysmal nocturnal dyspnea, edema, light headedness, other Gastrointestinal: Diarrhea. negative: Nausea, Vomiting, Abdominal Pain, Constipation, Melena, Hematochezia, Other Genitourinary: negative: Dysuria, Frequency, Incontinence, Hematuria, Retention , Other Musculoskeletal: negative: Neck Pain, Shoulder Pain, Arm Pain, Back Pain, Hand Pain, Leg Pain, Foot Pain, Other Skin: negative: Rash, Lesions, Carson, Bruising, Other - Medications/Allergies Allergies/Adverse Reactions: Allergies Allergy/AdvReac Type Severity Reaction Status Date / Time codeine AdvReac Intermediate Verified 01/09/18 21:42 Medications: Current Medications Acetaminophen (Tylenol) 650 mg PO Q4H PRN PRN Reason: Headache/Fever or Mild Pain Al Hydroxide/Mg Hydroxide (Maalox) 15 ml PO Q4H PRN PRN Reason: Heartburn or Indigestion Amitriptyline HCl (Elavil) 25 mg PO DAILY [facility] Last Admin: 01/12/18 09:06 Dose: 25 mg Artificial Tears (Tears Naturale) 0 drop EA EYE PRN PRN PRN Reason: Dry Eyes Azithromycin (Zithromax) 250 mg PO DAILY [facility] Stop: 01/15/18 09:01 Last Admin: 01/12/18 09:04 Dose: 250 mg Baclofen (Lioresal) 20 mg PO BID [facility] Last Admin: 01/12/18 09:05 Dose: 20 mg Dextrose/Water (Dextrose 50%) 25 gm SLOW IVP PRN PRN PRN Reason: Hypoglycemia Famotidine (Pepcid) 20 mg PO BID [facility] Last Admin: 01/12/18 09:04 Dose: 20 mg Ferrous Sulfate (Feosol) 325 mg PO QA-[facility] Last Admin: 01/12/18 09:06 Dose: 325 mg Furosemide (Lasix) 20 mg PO DAILY [facility] Last Admin: 01/12/18 09:05 Dose: 20 mg Glucagon (Glucagon) 1 mg IM PRN PRN PRN Reason: Hypoglycemia Guaifenesin (Robitussin Sf) 200 mg PO Q4H PRN PRN Reason: Cough Hydralazine HCl (Apresoline) 10 mg SLOW IVP Q4H PRN PRN Reason: Systolic BP > 180 Dextrose/Water (D5w) 1,000 mls @ 0 mls/hr IV .Q0M PRN; As Directed PRN Reason: Hypoglycemia Insulin Human Lispro (Humalog) 0 units SC .MODERATE SLIDING SC PRN PRN Reason: Moderate Correctional Scale Last Admin: 01/12/18 11:14 Dose: 6 unit Insulin Human Lispro (Humalog) 0 units SC .BEDTIME SLIDING SC PRN PRN Reason: Bedtime Correctional Scale Iron/Minerals/Multivitamins (Theragran M) 1 tab PO DAILY [facility] Last Admin: 01/12/18 09:05 Dose: 1 tab Loperamide HCl (Imodium) 2 mg PO PRN PRN PRN Reason: Diarrhea/Loose Stools Loratadine (Claritin) 10 mg PO DAILYPRN PRN PRN Reason: Sinus Symptoms Magnesium Hydroxide (Milk Of Magnesium) 30 ml PO DAILYPRN PRN PRN Reason: Constipation Mineral Oil/White Petrolatum (Eucerin Cream) 0 gm TOP BIDPRN PRN PRN Reason: Dry Skin Morphine Sulfate (Morphine Sulfate) 4 mg SLOW IVP Q4H PRN PRN Reason: Pain Last Admin: 01/09/18 20:28 Dose: 4 mg Morphine Sulfate (Ms Contin) 30 mg PO TID [facility] Last Admin: 01/12/18 09:05 Dose: 30 mg Nadolol (Corgard) 20 mg PO DAILY [facility] Last Admin: 01/12/18 09:09 Dose: Not Given Ondansetron HCl (Zofran Odt) 4 mg PO Q6H PRN PRN Reason: Nausea/Vomiting Ondansetron HCl (Zofran) 4 mg IVP Q6H PRN PRN Reason: Nausea/Vomiting Phenol (Chloraseptic [place] 180 Ml Bot) 0 ml PO PRN PRN PRN Reason: Sore Throat Polyethylene Glycol (Miralax) 17 gm PO DAILY [facility] Last Admin: 01/12/18 09:09 Dose: Not Given Sodium Chloride (Flush - Normal Saline) 10 ml IVF Q12HR [facility] Last Admin: 01/12/18 09:10 Dose: 10 ml Sodium Chloride (Flush - Normal Saline) 10 ml IVF PRN PRN PRN Reason: Saline Flush Sodium Chloride ([place] Nasal [place] 0.65%) 0 ml EA NARE QIDPRN PRN PRN Reason: Nasal Congestion Spironolactone (Aldactone) 50 mg PO QAM-WM [facility] Last Admin: 01/12/18 09:03 Dose: 50 mg Zolpidem Tartrate (Ambien) 5 mg PO HSPRN PRN PRN Reason: Insomnia
--- NOTE | 2018-01-12 12:38 | PRG ---
DATE OF SERVICE: 01/12/2018 HISTORY OF PRESENT ILLNESS: This is a 67-year-old male with liver cirrhosis, diabetes jennifer itus, and also chronic hepatitis, status post treatment. The patient presents to our ER with severe diarrhea and also passing out at home. The patient has had nausea, vomiting, extreme gas and also di arrhea over the last 7 days. The patient had been treated with Levaquin for about 7 days recently. The patient's C. difficile is negative. The Campylobacter antigen came back positive. The patient a lready had a course of Levaquin a week or 10 days ago. The patient apparently has had no more stools since admission. He has only one stool. He has no more nausea, no more vomiting. He is tolerating diet very well. However, he is passing large amount of gas and no stool. PHYSICAL EXAMINATION: GENERAL: Appears comfortable. VITAL SIGNS: He is afebrile. Temperature 98 degrees Fahrenheit, pulse is 55, blood pressure 130/72. CARDIOVASCULAR SYSTEM: First and second heart sounds normal. LUNGS: Clear to auscultation. ABDOMEN: Soft to palpate. No organomegaly. No tenderness. No masses. CLINICAL IMPRESSION: Recurrent nausea, vomiting, diarrhea, mostly from the Campylobacter ____ infect ion. PLAN: Azithromycin 500 mg p.o. 3 times a day for 3 days. The patient was on an antibiotic today and will observe him today. If he does well, we will discontinue antibiotics tomorrow.
[2018-01-13] MEDS: HumaLOG 300 UNITS/3 ML VIAL SC PRN ×2 (06:18→12:03)
[2018-01-13 08:38] VITALS: TEMP 98
[2018-01-13] MEDS: Multivitamin W/ Minerals 1 TAB PO SCH (09:33)
[2018-01-13] MEDS: Spironolactone 25 MG TAB PO SCH (09:33)
[2018-01-13] MEDS: Morphine ER 30 MG TAB PO SCH (09:33)
[2018-01-13] MEDS: Azithromycin 250 MG TAB PO SCH (09:33)
[2018-01-13] MEDS: Amitriptyline HCl 25 MG TAB PO SCH (09:34)
[2018-01-13] MEDS: Ferrous Sulfate 325 MG TAB PO SCH (09:35)
[2018-01-13] MEDS: Polyethylene Glycol 3350 17 GM Packet PO SCH (09:35)
[2018-01-13] MEDS: Furosemide 20 MG TAB PO SCH (09:35)
[2018-01-13] MEDS: Famotidine 20 MG TAB PO SCH (09:35)
[2018-01-13] MEDS: Baclofen 10 MG TAB PO SCH (09:35)
[2018-01-13] MEDS: Nadolol 40 MG TAB PO SCH (09:39)
--- NOTE | 2018-01-13 11:27 | PDOC.PN ---
- Subjective Encounter Start Date: 01/13/18 Encounter Start Time: 09:10 Patient seen and examined. No new complaints. No overnight events - Objective MAR Reviewed: Yes Vital Signs & Weight: Vital Signs (12 hours) Temp Pulse Resp BP Pulse Ox 01/13/18 08:00 98.0 F 56 L 14 157/81 H 97 Weight Admit Weight 171 lb 4.8 oz Weight 171 lb 4.8 oz I&O: 01/12/18 01/13/18 01/14/18 06:59 06:59 06:59 Intake Total 1272 2401 Output Total 900 Balance 1272 1501 Result Diagrams: 01/09/18 13:19 01/09/18 13:19 Additional Labs: Accuchecks 01/13/18 01/12/18 01/12/18 04:02 19:59 15:49 POC Glucose 197 H 264 H 83 Phys Exam - Physical Examination Constitutional: NAD HEENT: PERRLA, moist MMs, sclera anicteric Neck: no JVD, supple Respiratory: no wheezing, no rales, no rhonchi Cardiovascular: RRR, no significant murmur, no rub Gastrointestinal: soft, non-tender, no distention, positive bowel sounds Musculoskeletal: no edema, pulses present Neurological: non-focal, normal sensation, moves all 4 limbs Psychiatric: normal affect, A&O x 3 Skin: no rash, normal turgor Dx/Plan (1) Pleural effusion on right Code(s): J90 - PLEURAL EFFUSION, NOT ELSEWHERE CLASSIFIED Status: Acute (2) Cirrhosis of liver with ascites Code(s): K74.60 - UNSPECIFIED CIRRHOSIS OF LIVER; R18.8 - OTHER ASCITES Status : Chronic (3) DM type 2 (diabetes mellitus, type 2) Status: Chronic Qualifiers: (4) Hepatitis C Code(s): B19.20 - UNSPECIFIED VIRAL HEPATITIS C WITHOUT HEPATIC COMA Status: Chronic Qualifiers: (5) Microcytic anemia Code(s): D50.9 - IRON DEFICIENCY ANEMIA, UNSPECIFIED Status: Chronic (6) Portal hypertension Code(s): K76.6 - PORTAL HYPERTENSION Status: Chronic (7) Weight loss Status: Chronic (8) Campylobacter diarrhea Code(s): A04.5 - CAMPYLOBACTER ENTERITIS Status: Acute - Plan cont current plan of care, continue antibiotics * medication reviewed as below * symptomatic treatment * stable for discharge * see discharge summery for details. Review of Systems - Review of Systems Eyes: negative: Pain, Vision Change, Conjunctivae Inflammation, Eyelid Inflammation, Redness, Other ENT: negative: Ear Pain, Ear Discharge, Nose Pain, Nose Discharge, Nose Congestion, Mouth Pain, Mouth Swelling, Throat Pain, Throat Swelling, Other Respiratory: negative: Cough, Dry, Shortness of Breath, Hemoptysis, SOB with Excertion, Pleuritic Pain, Sputum, Wheezing Cardiovascular: negative: chest pain, palpitations, orthopnea, paroxysmal nocturnal dyspnea, edema, light headedness, other Gastrointestinal: negative: Nausea, Vomiting, Abdominal Pain, Diarrhea, Constipation, Melena, Hematochezia, Other Genitourinary: negative: Dysuria, Frequency, Incontinence, Hematuria, Retention , Other Musculoskeletal: negative: Neck Pain, Shoulder Pain, Arm Pain, Back Pain, Hand Pain, Leg Pain, Foot Pain, Other Skin: negative: Rash, Lesions, Carson, Bruising, Other - Medications/Allergies Allergies/Adverse Reactions: Allergies Allergy/AdvReac Type Severity Reaction Status Date / Time codeine AdvReac Intermediate Verified 01/09/18 21:42 Medications: Current Medications Acetaminophen (Tylenol) 650 mg PO Q4H PRN PRN Reason: Headache/Fever or Mild Pain Al Hydroxide/Mg Hydroxide (Maalox) 15 ml PO Q4H PRN PRN Reason: Heartburn or Indigestion Amitriptyline HCl (Elavil) 25 mg PO DAILY [facility] Last Admin: 01/13/18 09:34 Dose: 25 mg Artificial Tears (Tears Naturale) 0 drop EA EYE PRN PRN PRN Reason: Dry Eyes Azithromycin (Zithromax) 250 mg PO DAILY [facility] Stop: 01/15/18 09:01 Last Admin: 01/13/18 09:33 Dose: 250 mg Baclofen (Lioresal) 20 mg PO BID [facility] Last Admin: 01/13/18 09:35 Dose: 20 mg Dextrose/Water (Dextrose 50%) 25 gm SLOW IVP PRN PRN PRN Reason: Hypoglycemia Famotidine (Pepcid) 20 mg PO BID [facility] Last Admin: 01/13/18 09:35 Dose: 20 mg Ferrous Sulfate (Feosol) 325 mg PO QA-[facility] Last Admin: 01/13/18 09:35 Dose: 325 mg Furosemide (Lasix) 20 mg PO DAILY [facility] Last Admin: 01/13/18 09:35 Dose: 20 mg Glucagon (Glucagon) 1 mg IM PRN PRN PRN Reason: Hypoglycemia Guaifenesin (Robitussin Sf) 200 mg PO Q4H PRN PRN Reason: Cough Hydralazine HCl (Apresoline) 10 mg SLOW IVP Q4H PRN PRN Reason: Systolic BP > 180 Dextrose/Water (D5w) 1,000 mls @ 0 mls/hr IV .Q0M PRN; As Directed PRN Reason: Hypoglycemia Insulin Human Lispro (Humalog) 0 units SC .MODERATE SLIDING SC PRN PRN Reason: Moderate Correctional Scale Last Admin: 01/13/18 06:18 Dose: 2 unit Insulin Human Lispro (Humalog) 0 units SC .BEDTIME SLIDING SC PRN PRN Reason: Bedtime Correctional Scale Last Admin: 01/12/18 20:49 Dose: 3 unit Iron/Minerals/Multivitamins (Theragran M) 1 tab PO DAILY [facility] Last Admin: 01/13/18 09:33 Dose: 1 tab Loperamide HCl (Imodium) 2 mg PO PRN PRN PRN Reason: Diarrhea/Loose Stools Loratadine (Claritin) 10 mg PO DAILYPRN PRN PRN Reason: Sinus Symptoms Magnesium Hydroxide (Milk Of Magnesium) 30 ml PO DAILYPRN PRN PRN Reason: Constipation Mineral Oil/White Petrolatum (Eucerin Cream) 0 gm TOP BIDPRN PRN PRN Reason: Dry Skin Morphine Sulfate (Morphine Sulfate) 4 mg SLOW IVP Q4H PRN PRN Reason: Pain Last Admin: 01/09/18 20:28 Dose: 4 mg Morphine Sulfate (Ms Contin) 30 mg PO TID [facility] Last Admin: 01/13/18 09:33 Dose: 30 mg Nadolol (Corgard) 20 mg PO DAILY [facility] Last Admin: 01/13/18 09:39 Dose: 20 mg Ondansetron HCl (Zofran Odt) 4 mg PO Q6H PRN PRN Reason: Nausea/Vomiting Ondansetron HCl (Zofran) 4 mg IVP Q6H PRN PRN Reason: Nausea/Vomiting Phenol (Chloraseptic [place] 180 Ml Bot) 0 ml PO PRN PRN PRN Reason: Sore Throat Polyethylene Glycol (Miralax) 17 gm PO DAILY [facility] Last Admin: 01/13/18 09:35 Dose: Not Given Sodium Chloride (Flush - Normal Saline) 10 ml IVF Q12HR [facility] Last Admin: 01/13/18 09:35 Dose: 10 ml Sodium Chloride (Flush - Normal Saline) 10 ml IVF PRN PRN PRN Reason: Saline Flush Sodium Chloride ([place] Nasal [place] 0.65%) 0 ml EA NARE QIDPRN PRN PRN Reason: Nasal Congestion Spironolactone (Aldactone) 50 mg PO QAM-WM [facility] Last Admin: 01/13/18 09:33 Dose: 50 mg Zolpidem Tartrate (Ambien) 5 mg PO HSPRN PRN PRN Reason: Insomnia
[2018-01-13 11:30] VITALS: BP 152/82
--- NOTE | 2018-01-13 12:27 | DIS ---
DATE OF ADMISSION: 01/09/2018 DATE OF DISCHARGE: 01/13/2018 PRIMARY CARE PHYSICIAN: Dr. Leticia Mir. DISCHARGE DISPOSITION: Home. PRIMARY DISCHARGE DIAGNOSES: Campylobacter diarrhea, right pleural effusion, unintentional weight lo ss. SECONDARY DISCHARGE DIAGNOSES: Cirrhosis of liver, portal hypertension, chronic hepatitis C, microcy tic anemia, diabetes type 2. PRIMARY PROCEDURE AND OPERATION: None. RADIOLOGICAL INVESTIGATION: Abdomen and pelvis CT scan showed mild ascites, cirrhosis of liver. Abd ominal ultrasound showed cirrhosis of liver, but a very scant amount of ascites, right pleural effusi on. SIGNIFICANT LABORATORY DATA: WBC 4.8, hemoglobin 11.7, platelet of 151. INR 1.1. Sodium 136, creat inine 0.66, AST 41, ALT 33, albumin 3.4, lipase 33. Ammonia 33. Urinalysis normal. Stool for infec tion workup came back positive for Campylobacter, positive. DISCHARGE MEDICATIONS: Azithromycin 250 mg p.o. daily for 7 days, amitriptyline 25 mg p.o. daily, Ba clofen 20 mg p.o. b.i.d., Pepcid 20 mg p.o. b.i.d., Ferrous sulfate 325 mg p.o. daily, Lasix 20 mg p. o. daily, Amaryl 4 mg p.o. daily, Tradjenta 5 mg p.o. daily, metformin ER 1000 mg p.o. b.i.d., morphi ne sulfate ER 30 mg t.i.d., multivitamin 1 tablet p.o. daily, Corgard 20 mg p.o. daily, MiraLax 17 gr ams p.o. daily p.r.n., Aldactone 50 mg p.o. daily. CONTRAINDICATIONS: None. CODE STATUS: FULL CODE. INPATIENT CONSULTANTS: Dr. Maryann Mir was consulted while in hospital. TEST RESULTS PENDING ON DISCHARGE: None. ALLERGIES: CODEINE. DISCHARGE PLAN: Post hospital, the patient is instructed to follow up with primary care physician in 1 week. The patient is also instructed to follow up with Dr. Mir in 1 week. HOSPITAL COURSE: A 67-year-old male who has a long history of intermittent diarrhea, constipation, a nd bloating sensation. He has a weight loss of 30 pounds since October and that is why he came [facility]. As an outpatient basis about 1 month ago, patient had a colonoscopy that was unremarkable. Patient had stool for infection workup that was negative. We admitted this patien t in hospital. We consulted Dr. Mir. We tried to do paracentesis on him, but his ascitic flui d was very scant amount, so unable to perform paracentesis. When we did CT of the abdomen and pelvis , we found to have a pleural effusion. We treated him with Lasix, Aldactone and Corgard for his port al hypertension and liver cirrhosis. At this time, we also send repeat stool for infection workup and came back positive for Campylobacter , positive. He was given previously Levaquin therapy, but he has not responded to that therapy and t hat is why we changed to azithromycin therapy. We are planning to give him azithromycin for 7 days and after that he will follow up with GI or prima ry care physician and if still he has diarrhea, then he will need another stool study to document azael arance of infection. We are also prescribing above-mentioned medication for his liver cirrhosis with portal hypertension. We are also thinking that he might have underlying irritable bowel syndrome and that is why we presc ribed amitriptyline. The patient is seen and examined at bedside today. Please see my progress note from today for furthe r detail.
== END 2018-01-13 12:27 | disposition home or self-care (01) | DRG 372 ==
LOC: ERS 12:45 → T4-B 18:24
PROVIDERS: ADMIT Emergency Medicine; ATTEND Emergency Medicine
DX: A04.5 Campylobacter enteritis (principal); J90 Pleural effusion, not elsewhere classified; K76.6 Portal hypertension; R18.8 Other ascites; E44.1 Mild protein-calorie malnutrition; K74.60 Unspecified cirrhosis of liver; B18.2 Chronic viral hepatitis C; D50.9 Iron deficiency anemia, unspecified; Z68.23 Body mass index [BMI] 23.0-23.9, adult; E11.65 Type 2 diabetes mellitus with hyperglycemia
CPT/HCPCS: 36415; 36416; 74177; 76705; 80048; 80053; 81003; 82140; 83630; 83690; 85025; 85610; 85730; 87045; 87046; 87177; 87324; 87449; 87899; 96360; 96361; A4216; J1940; J2001; J2270

== ENCOUNTER 2019-05-06 14:20 | Outpatient (CLI) | payer OTHER, MEDICARE ==
[2019-05-06 16:56] LABS: #Basophils 0.1 thou/uL (0.0-0.2); #Eosinphils 0.3 thou/uL (0.0-0.7); #Lymphocytes 1.3 thou/uL (1.20-3.40); %Lymphocytes 11.8 % (21.0-51.0); %Monocytes 9.5 % (0.0-10.0); %Neutrophils 74.8 % (42.0-75.0); Hemoglobin 10.8 g/dL (14.0-18.0); Mean Corpuscular HGB CONC 32.2 g/dL (32.0-36.0); Mean Corpuscular Hemoglobin 25.9 pg (27.0-31.0); Mean Corpuscular Volume 80.5 fL (78.0-98.0); Mean Platelet Volume 8.8 fL (7.4-10.4); Platelet Count 244 thou/uL (130-400); RBC Distribution Width 15.1 % (11.5-14.5); Red Blood Cell (RBC) Count 4.15 mill/uL (4.70-6.10); White Blood Cell (WBC) Count 10.6 thou/uL (4.8-10.8)
== END 2019-05-06 14:21 | disposition home or self-care (01) ==
LOC: LABBT 14:20
PROVIDERS: ATTEND Orthopaedic Surgery Hand Surgery
DX: Z01.818 Encounter for other preprocedural examination (principal); R22.31 Localized swelling, mass and lump, right upper limb
CPT/HCPCS: 85025; 93005; 93010

== ENCOUNTER 2019-05-07 06:05 | Day surgery (SDC) | payer OTHER, MEDICARE ==
[2019-05-06 14:52] VITALS: BMI 24.1
[2019-05-07] MEDS ORDERED: Bacitracin Zinc Ointment 30 gm TUBE ONE (06:32)
[2019-05-07] MEDS ORDERED: Sodium Chloride 0.9% 10 ML ONE (06:32)
[2019-05-07] MEDS ORDERED: Betamet Acet/Betamet Na Ph 30 MG/5 ML VIAL ONE (06:32)
[2019-05-07] MEDS ORDERED: Bupivacaine PF 0.5% 30 ML VIAL ONE (06:32)
[2019-05-07] MEDS ORDERED: Midazolam HCl 2 mg/2 ml Vial ONE (07:13)
[2019-05-07] MEDS ORDERED: Fentanyl 100 MCG/2 ML VIAL ONE (07:13)
[2019-05-07] MEDS ORDERED: Ketorolac Tromethamine 30 MG/ML VIAL ONE (08:47)
--- NOTE | 2019-05-07 15:19 | OP ---
DATE OF PROCEDURE: 05/07/2019 PREOPERATIVE DIAGNOSIS: Right ring finger benign neoplasm. 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 PROCEDURE PERFORMED: Excisional biopsy of benign mass right ring finger 2 to 3 cm. SPECIMEN: As listed above to Pathology. TOURNIQUET TIME: 10 minutes. ESTIMATED BLOOD LOSS: 5 mL. ANESTHESIA: Dr. Kirkland. Sedation followed by 20 mL total Marcaine digital block. OBSERVATION: SUMAYA rodríguez studentDenisse. COMPLICATIONS: None. DESCRIPTION OF PROCEDURE: After successful anesthesia listed above, limb was prepped and draped. Time-out was done appropriately. The site, side, and draped extremity matched the consent. After digital block, we waited 6 minutes and then performed exsanguination of the limb and inflated the tourniquet to 250 mmHg pressure. A James type zigzag incision was made avoiding a central tuft, carried through skin and subcutaneous tissue. Performed a neuroplasty and identified the digital nerves, all of the trifurcation branches. The tumor was of bright red, purple origin, appeared to be at one with the one of the terminal branches of the ulnar digital artery. We from the digital nerves on the ulnar side and also the most central digital nerve from the radial side as part of a formal neuroplasty, removed it en miranda. It was solid, fleshy, and was sent to Pathology. Fresh frozen call was made describing the spindle cell benign or possible angio origin. We released the tourniquet. We obtained hemostasis through compression. Gave the patient 2.5 mL of Celestone over the digital nerves and the central wound. Closed with simple interrupted 4-0 nylon suture. Bulky dressing was applied. He left the operating room without evidence of anesthetic or operative complication. Job ID: [id number]
== END 2019-05-07 09:15 | disposition home or self-care (01) ==
LOC: SDC 06:05
PROVIDERS: ATTEND Orthopaedic Surgery Hand Surgery
PROC: 0JBJ0ZZ Excision of Right Hand Subcutaneous Tissue and Fascia, Open Approach (ICD-10-PCS; principal; 2019-05-07)
DX: D21.11 Benign neoplasm of connective and other soft tissue of right upper limb, including shoulder (principal); E11.9 Type 2 diabetes mellitus without complications; M19.90 Unspecified osteoarthritis, unspecified site; Z79.1 Long term (current) use of non-steroidal anti-inflammatories (NSAID); Z79.84 Long term (current) use of oral hypoglycemic drugs; Z79.891 Long term (current) use of opiate analgesic; Z88.5 Allergy status to narcotic agent
CPT/HCPCS: 88305; 88331; 88341; 88342; J0690; J0702; J1885; J2250; J3010; J3490; S0020

== ENCOUNTER 2019-07-21 11:10 | Inpatient (IN) | payer OTHER, MEDICARE ==
[~2019-07-21 11:10] MED LIST: PROPOFOL 200 MG/20 ML VIAL ONE
[2019-07-21 12:24] LABS: INR-International Normal Ratio 1.2; PTT 28.1 SEC (22.9-36.1); Prothrombin Time 14.8 SEC (12.0-14.7)
[2019-07-21 12:33] LABS: #Basophils 0.1 thou/uL (0.0-0.2); #Lymphocytes 1.1 thou/uL (1.20-3.40); #Monocytes 0.7 thou/uL (0.11-0.59); #Neutrophils 11.3 thou/uL (1.40-6.50); %Basophils 0.9 % (0.0-1.0); %Eosinophils 0.2 % (0.0-10.0); %Lymphocytes 8.2 % (21.0-51.0); %Monocytes 5.4 % (0.0-10.0); %Neutrophils 85.3 % (42.0-75.0); Hemoglobin 6.4 g/dL (14.0-18.0); Mean Corpuscular HGB CONC 31.8 g/dL (32.0-36.0); Mean Corpuscular Volume 75.7 fL (78.0-98.0); Mean Platelet Volume 8.6 fL (7.4-10.4); Platelet Count 392 thou/uL (130-400); RBC Distribution Width 15.4 % (11.5-14.5); Red Blood Cell (RBC) Count 2.65 mill/uL (4.70-6.10); White Blood Cell (WBC) Count 13.2 thou/uL (4.8-10.8)
[2019-07-21 12:39] LABS: ALT (SGPT) 38 U/L (8-55); AST (SGOT) 36 U/L (5-34); Albumin 3.3 g/dL (3.4-4.8); Alkaline Phosphatase 78 U/L (40-110); Anion Gap 23 mmol/L (10-20); BUN (Urea Nitrogen) 55 mg/dL (8.4-25.7); Bilirubin, Total 0.3 mg/dL (0.2-1.2); Calc. Creatinine Clearance 0 mL/min (70-130); Calcium 8.2 mg/dL (7.8-10.44); Carbon Dioxide 15 mmol/L (23-31); Chloride 103 mmol/L (98-107); Estimated GFR-MDRD 54; Globulin 3.1 g/dL (2.4-3.5); Glucose 208 mg/dL (80-115); Lipase 68 U/L (8-78); Potassium 4.4 mmol/L (3.5-5.1); Protein, Total 6.4 g/dL (5.8-8.1); Sodium 137 mmol/L (136-145)
[2019-07-21] MEDS ORDERED: Dextrose 50% Abboject 50 ML SYRINGE SLOW IVP PRN (13:41)
[2019-07-21] MEDS ORDERED: Dextrose 5% in Water 1,000 ML IV PRN (13:41)
[2019-07-21] MEDS ORDERED: Ondansetron PF 4 MG/2 ML Vial IVP PRN (13:41)
[2019-07-21] MEDS ORDERED: Octreotide Acetate 1,250 MCG in Sodium Chloride 0.9% 250 ML 250 ML IVPB SCH (13:45)
--- NOTE | 2019-07-21 13:48 | PDOC.HHP ---
Hospitalist HPI - History of Present Illness Melena History of Present Illness: Mr. Early is a 69 y/o gentleman with PMH of HepC and liver cirrhosis, T2DM, esophageal varices who presents to the ED with melena. He states that yesterday night he noticed black colored stools. He has history of variceal banding done by his GI doctor Dr. Callahan and has a stool occult test kit at home. He tested his stool and it came back positive for bleeding. This morning, he was reportedly very weak and unable to get out of bed. He and his son decided to come to the hospital. Of note, he has history of Hep C since 1979 treated with medication and resultant liver cirrhosis. He takes spirnolactone and lasix for management of ascites. Denies cp, sob, abdominal pain, fever, chills, nausea, vomiting, or other associated symptoms. ED Course: Hb 6.4 in the ED. 2u of blood to be given. Vitals compensated at this time. Hospitalist ROS - Review of Systems Constitutional: reports: weakness. denies: fever, chills, sweats, malaise, other Eyes: denies: pain, vision change, conjunctivae inflammation, eyelid inflammation, redness, other ENT: denies: ear pain, ear discharge, nose pain, nose discharge, nose congestion , mouth pain, mouth swelling, throat pain, throat swelling, other Respiratory: denies: cough, dry, shortness of breath, hemoptysis, SOB with excertion, pleuritic pain, sputum, wheezing, other Cardiovascular: denies: chest pain, palpitations, orthopnea, paroxysmal noc. dyspnea, edema, light headedness, other Gastrointestinal: denies: nausea, vomiting, abdominal pain, diarrhea, constipation, melena, hematochezia, other Genitourinary: denies: dysuria, frequency, incontinence, hematuria, retention, other Musculoskeletal: denies: neck pain, shoulder pain, arm pain, back pain, hand pain, leg pain, foot pain, other Skin: denies: rash, lesions, rodrigue, bruising, other Neurological: denies: weakness, numbness, incoordination, change in speech, confusion, seizures, other - Medication Medications: metFORMIN Micki Jul 21, 2019 11:24 SAVANNAH Domínguez, Erma TABLET, EXTENDED RELEASE 24 HR : Strength - 500 mg : ORAL Patient Dose: 1000 mg Oral 2 times a day. glyBURIDE MonJul 21, 2019 11:25 SAVANNAH Domínguez Julia tablet : Strength - 1.25 mg : ORAL Patient Dose: unk mg Oral once a day. spironolactone MonJul 21, 2019 11:25 SAVANNAH Domínguez Julia tablet : Strength - 100 mg : ORAL Patient Dose: unki mg Oral once a day. furosemide oral MonJul 21, 2019 11:26 SAVANNAH Domínguez Julia tablet : Strength - 20 mg : ORAL Patient Dose: unk mg Oral once a day. [place] MonJul 21, 2019 11:26 SAVANNAH Domínguez Julia tablet : Strength - 10 mg-325 mg : ORAL Patient Dose: 1 tab(s) Oral once a day (in the morning). iron 50 mg iron tablet MonJul 21, 2019 11:26 SAVANNAH Domínguez Julia tablet : Strength - 50 mg : ORAL Patient Dose: 1 tab(s) Oral once a day. Hospitalist History - Past Medical History Source: patient Cardiac: reports: no pertinent history Pulmonary: reports: no pertinent history [employer]: reports: no pertinent history Gastrointestinal: reports: GI bleed Heme/Onc: reports: no pertinent history Hepatobiliary: reports: Cirrhosis, Hep A/B/C Psych: reports: no pertinent history Musculoskeletal: reports: no pertinent history Rheumatologic: reports: no pertinent history Infectious Disease: reports: no pertinent history ENT: reports: no pertinent history Renal/: reports: no pertinent history Endocrine: reports: Diabetes Dermatology: reports: no pertinent history - Past Surgical History Past Surgical History: reports: Other (Right knee surgery, pins placed) - Family History Family History: reports: no pertinent history - Social History Smoking Status: Never smoker Alcohol: reports: None Drugs: reports: none Living Situation: With Family Occupation: retired Activity level: independent ambulation - Exam General Appearance: NAD, awake alert, ill appearing General - other findings: conjunctival pallor Eye: PERRL, anicteric sclera ENT: normocephalic atraumatic, no oropharyngeal lesions, moist mucosa Neck: supple, symmetric, no JVD, no thyromegaly, no lymphadenopathy, no carotid bruit Heart: RRR, no murmur, no gallops, no rubs, normal peripheral pulses Respiratory: CTAB, no wheezes, no rales, no ronchi, normal chest expansion, no tachypnea, normal percussion Gastrointestinal: soft, non-tender, non-distended, normal bowel sounds, no palpable masses, no hepatomegaly, no splenomegaly, no bruit Extremities: no cyanosis, no clubbing, no edema Skin: normal turgor, no lesions, no rashes Neurological: cranial nerve grossly intact, normal sensation to touch, no weakness, no focal deficits, no new deficit Musculoskeletal: normal tone, normal strength, no muscle wasting Psychiatric: normal affect, normal behavior, A&O x 3 Hospitalist Results - Labs Result Diagrams: 07/21/19 12:00 07/21/19 12:00 Lab results: WBC 13.2 thou/uL (4.8-10.8) H 07/21/19 12:00 Hgb 6.4 g/dL (14.0-18.0) L 07/21/19 12:00 Hct 20.0 % (42.0-52.0) L 07/21/19 12:00 MCV 75.7 fL (78.0-98.0) L 07/21/19 12:00 Plt Count 392 thou/uL (130-400) 07/21/19 12:00 Neutrophils % 85.3 % (42.0-75.0) H 07/21/19 12:00 Sodium 137 mmol/L (136-145) 07/21/19 12:00 Potassium 4.4 mmol/L (3.5-5.1) 07/21/19 12:00 Chloride 103 mmol/L (98-107) 07/21/19 12:00 Carbon Dioxide 15 mmol/L (23-31) L 07/21/19 12:00 BUN 55 mg/dL (8.4-25.7) H 07/21/19 12:00 Creatinine 1.32 mg/dL (0.7-1.3) H 07/21/19 12:00 Glucose 208 mg/dL (80-115) H 07/21/19 12:00 Calcium 8.2 mg/dL (7.8-10.44) 07/21/19 12:00 Total Bilirubin 0.3 mg/dL (0.2-1.2) 07/21/19 12:00 AST 36 U/L (5-34) H 07/21/19 12:00 ALT 38 U/L (8-55) 07/21/19 12:00 Alkaline Phosphatase 78 U/L (40-110) 07/21/19 12:00 Troponin I 0.018 ng/mL (< 0.028) 07/21/19 12:00 Serum Total Protein 6.4 g/dL (5.8-8.1) 07/21/19 12:00 Albumin 3.3 g/dL (3.4-4.8) L 07/21/19 12:00 Lipase 68 U/L (8-78) 07/21/19 12:00 VITAL SIGNS [place] Jul 21, 2019 12:20 SAVANNAH Domínguez Julia BP: 131/73, Pulse: 97, Resp: 18, O2 sat: 97, Time: 07/21/2019 12:20. - EKG Interpretation EK lead EKG shows normal sinus rhythm, Rate (beats per minute): 98, Interpretation: normal EKG, Conduction normal, ST segments normal, T waves normal, [place] normal, Clinical impression: Normal EKG. Hospitalist H&P A/P - Problem (1) GI bleeding Code(s): K92.2 - GASTROINTESTINAL HEMORRHAGE, UNSPECIFIED Status: Acute (2) Symptomatic anemia Code(s): D64.9 - ANEMIA, UNSPECIFIED Status: Acute (3) History of esophageal varices Code(s): Z87.19 - PERSONAL HISTORY OF OTHER DISEASES OF THE DIGESTIVE SYSTEM Status: Chronic (4) Liver cirrhosis Code(s): K74.60 - UNSPECIFIED CIRRHOSIS OF LIVER Status: Chronic (5) Type 2 diabetes mellitus Status: Chronic (6) Acute kidney injury Code(s): N17.9 - ACUTE KIDNEY FAILURE, UNSPECIFIED Status: Acute - Plan Plan: Admit for inpatient. Likely greater than 2 midnights needed in evaluation and tx. Two large bore IV Octreotide drip Protonix 40mg IV BID Ceftriaxone 1gm q24hr for SBP prophylaxis NPO for now, consult to GI physician Monitor H & H q8hr. ED to give 2u PRBC Low dose sliding scale q6hr while NPO Bump in Cr, baseline 0.8 now 1.37, NS @ 75ml/hr for fluid challenge, BUN/Cr ratio suggestive of pre-renal, if not improvement consider US renal/lytes/ protein/cr ratio DVT Prophylaxis: SCDs Code status: Full ACP: is surrogate POA. Disposition: Admit for eval and tx of GI bleeding. Coordinate with GI. Supportive transfusion if less than 7.
[2019-07-21 14:43] VITALS: BMI 23.9
[2019-07-21] MEDS: Sodium Chloride 0.9% 1,000 ML IV SCH (14:47)
[2019-07-21] MEDS: cefTRIAXone\\ROCEPHIN 1 GM in Sodium Chloride 0.9% 100 ML IVPB SCH (14:48)
[2019-07-21] MEDS ORDERED: Ketamine 50 MG/ML (10ML VIAL) ONE (15:24)
[2019-07-21] MEDS ORDERED: Promethazine HCl 25 MG/ML VIAL SLOW IVP PRN (15:29)
[2019-07-21] MEDS ORDERED: Promethazine HCl 25 MG/ML VIAL IM PRN (15:29)
[2019-07-21] MEDS ORDERED: Ondansetron HCl/PF 4 MG/2 ML Vial IVP PRN (15:29)
[2019-07-21 15:45] LABS: Hemoglobin 5.7 g/dL (14.0-18.0)
[2019-07-21] MEDS: HumaLOG 300 UNITS/3 ML VIAL SC PRN (18:25)
--- NOTE | 2019-07-21 20:19 | CON ---
DATE OF CONSULTATION: 07/21/2019 REASON FOR CONSULTATION: History of black tarry stools, anemia due to blood loss. HISTORY OF PRESENT ILLNESS: Mr. Hebert Early is a very pleasant 69-year-old male, who is known to me from before. The patient had been seeing over the last several years. He was referred to me about more than 10 years ago for evaluation of chronic hepatitis C. He did take interferon treatment and also protein inhibitors. Apparently, he did not respond to the medication and he hospitalized several times. Subsequently with different combination, his hep C virus resolved. The patient unfortunately has developed liver cirrhosis, esophagitis, portal hypertensive gastropathy. The patient has had an upper GI bleeding off and on in the past, I believe the last one was couple of years ago. The patient has had portal hypertensive gastropathy and also has had esophageal varices with banding in the past. At one time, he also had a bleeding from some vascular ectasia of the colon which was cauterized. The patient has had ascites in the past. He was on fluids and placed on low-sodium diet and diuretics and his ascites problem resolved. The patient done well over the last couple of years. Last hep C last month, hep C RNA was negative. He has been referred to transplant program in [place] and does see Dr. Adrian Rivas off and on. He has an appointment to see Dr. Rivas this coming month. The patient went to [facility] for 10 days and got back today after [place]. Apparently got some cold and when he was in [facility], had to take some NyQuil and some other medication. The patient has history of arthritis, especially of the knee and does take naproxen off and on. The patient saw a black tarry stool last night and has another three more stools today. Stools are small in volume. He has no abdominal pain, no nausea, no vomiting. He started feeling dizzy. He called me this morning, I advised him to come to the ER. Came to the ER because of the above reason. He was found to be anemic and blood test has been ordered. The CBC in the ER, WBC 13,200, hemoglobin 6.4, hematocrit 20, MCV 72.7. Chemistry panel shows normal lytes, but BUN is elevated at 55 mostly from GI bleeding. Glucose 208. He complains of generalized weakness, fatigue, and also feel dizzy when he stands. He had no relevant history. ALLERGIES: ALLERGIES TO CODEINE. SOCIAL HISTORY: The patient is . Does not smoke or drink alcohol. No history of drug abuse. MEDICAL ILLNESSES: 1. Chronic hepatitis C, status post treatment and is acute. Last HCV RNA was negative. 2. Liver cirrhosis due to chronic hepatitis C. 3. Esophageal varices status post banding in the past. 4. Diabetes mellitus. 5. Osteoarthritis. MEDICATIONS: 1. Metformin. 2. Glyburide. 3. Spironolactone. 4. Furosemide. 5. [place]. 6. Iron supplement. PAST SURGICAL HISTORY: 1. Status post EGD and variceal banding several times. 2. Colonoscopy in the past. 3. Paracentesis in the past for ascites. REVIEW OF SYSTEMS: CONSTITUTIONAL: Has been having some low-grade fever and has congestion, poor appetite extended over the last several days. HEAD: No chronic headache. No dizziness. EYES: No impaired vision or diplopia. EARS: Hearing impairment. No ear discharge or pain. NOSE: No nosebleed. THROAT: No sore throat, no dysphagia. LUNGS: No chronic coughing. No hemoptysis. No dyspnea. CARDIOVASCULAR: No chest pain. No palpitation. No dyspnea, orthopnea, or PND. GI: Nausea and also history of melena. : No dysuria or hematuria. MUSCULOSKELETAL: History of knee pain especially in the left knee and takes naproxen off and on. NEUROPSYCHIATRY: No history of depression or anxiety. ENDOCRINE: No relevant symptom. PHYSICAL EXAMINATION: GENERAL: He appears very pale. He is awake, alert, and communicative. He is in no distress. He appears pale. VITAL SIGNS: His pulse is around 80, blood pressure is 130/76. HEENT: Conjunctivae are clear. NECK: Supple. No adenitis or thyromegaly noted. CARDIOVASCULAR: First and second heart sounds heard. LUNGS: Clear to auscultation. ABDOMEN: Soft. Mildly tender all over. No rebound or guarding. No ascites. No masses. EXTREMITIES: Reveal no edema. LABORATORY DATA: Admitting lab showed anemia with hemoglobin 6.4, hematocrit is 20, MCV is 76.7, platelet count is 392,000, polymorphs 85, lymphocytes 8. Chemistry panel; sodium 137, potassium 4.4, chloride 103, bicarb 15, BUN is 55, creatinine is 1.32, glucose 208, calcium 8.2, bilirubin 0.3, AST 36, ALT 38, alkaline phosphatase 78, albumin 3.3. IMPRESSION: 1. A 69-year-old male with chronic hepatitis C, status post treatment and his hep C RNA came back negative. No liver cirrhosis and has had esophagitis in the past with banding. The patient taking naproxen for arthritis. He present with melena, dizziness, and anemia due to blood loss. 2. Diabetes mellitus. 3. Chronic hepatitis C, successfully treated with antiviral medications. 4. Portal hypertensive gastropathy, esophagitis, status post banding in the past. PLAN: 1. Transfuse. 2. IV PPI. 3. EGD later on today. I will make further recommendation. Job ID: [id number]
[2019-07-21] MEDS: Pantoprazole 40 MG VIAL IVP SCH (20:24)
[2019-07-21] MEDS: Octreotide Acetate 1,250 MCG in Sodium Chloride 0.9% 250 ML 250 ML IVPB SCH (20:25)
--- NOTE | 2019-07-21 21:45 | OP ---
DATE OF PROCEDURE: 07/21/2019 PROCEDURE PERFORMED: Esophagogastroduodenoscopy. PREOPERATIVE DIAGNOSIS: Gastrointestinal bleeding. 69-year-old male presents with melena, dizziness, anemia. The patient has history of esophageal varices and banding before and also has had portal hypertensive gastropathy. POSTOPERATIVE DIAGNOSES: 1. Normal duodenum. 2. Some flecks of small old blood seen in stomach with no active bleeding seen. 3. Portal hypertensive gastropathy. 4. One single gastric varices over the gastric cardia versus hypertrophic mucosa. 5. Small varicosities not visualized after band. 6. Distal esophageal rings and not resected. DESCRIPTION OF PROCEDURE: The patient was placed on his left lateral position and was given sedation by Anesthesia Department. A Pentax video gastroscope under direct vision passed down the oropharynx past the GE junction into the stomach and subsequently into the descending duodenum. Over the distal esophagus, the patient found to have a ring-like stricture which was wide open, not so tight to dilate. The patient has some bluish discoloration of the esophagus and appears to be small varicosities. Then, I began with band. In the GE junction, no pathology. Retroflexion failed to show any lesion of fundus and cardia. I thought there was an area of hypertrophic mucosal fold, possibly a gastric varix, nonbleeding. The patient had portal hypertensive gastropathy. The patient has small amount of consequent flecks in the stomach, but I do not see any active bleeding. No ulceration. The gastric antrum, incisura angularis, no lesions. The duodenal bulb, descending duodenum, no pathology. The stomach decompressed and the scope removed. RECOMMENDATIONS: 1. Diabetic diet. 2. Start the patient on IV octreotide at 50 mcg/hour. 3. Transfuse. 4. We will start patient on beta blockers. Job ID: [id number]
[2019-07-21 21:55] LABS: Hemoglobin 7.3 g/dL (14.0-18.0)
[2019-07-22] MEDS: Sodium Chloride 0.9% 1,000 ML IV SCH ×3 (03:00→20:08)
[2019-07-22 05:58] LABS: #Basophils 0.2 thou/uL (0.0-0.2); #Eosinphils 0.2 thou/uL (0.0-0.7); #Lymphocytes 1.6 thou/uL (1.20-3.40); #Neutrophils 6.3 thou/uL (1.40-6.50); %Basophils 1.6 % (0.0-1.0); %Eosinophils 1.9 % (0.0-10.0); %Lymphocytes 17.2 % (21.0-51.0); %Monocytes 11.2 % (0.0-10.0); %Neutrophils 68.1 % (42.0-75.0); Hemoglobin 8.2 g/dL (14.0-18.0); Mean Corpuscular HGB CONC 31.3 g/dL (32.0-36.0); Mean Corpuscular Hemoglobin 24.7 pg (27.0-31.0); Mean Corpuscular Volume 78.7 fL (78.0-98.0); Mean Platelet Volume 8.4 fL (7.4-10.4); Platelet Count 277 thou/uL (130-400); RBC Distribution Width 16.3 % (11.5-14.5); Red Blood Cell (RBC) Count 3.32 mill/uL (4.70-6.10); White Blood Cell (WBC) Count 9.3 thou/uL (4.8-10.8)
[2019-07-22 06:16] LABS: ALT (SGPT) 48 U/L (8-55); AST (SGOT) 52 U/L (5-34); Albumin 3.2 g/dL (3.4-4.8); Alkaline Phosphatase 84 U/L (40-110); Anion Gap 14 mmol/L (10-20); BUN (Urea Nitrogen) 45 mg/dL (8.4-25.7); Bilirubin, Total 0.6 mg/dL (0.2-1.2); Calc. Creatinine Clearance 63 mL/min (70-130); Calcium 8.1 mg/dL (7.8-10.44); Carbon Dioxide 20 mmol/L (23-31); Chloride 105 mmol/L (98-107); Estimated GFR-MDRD 63; Globulin 3.5 g/dL (2.4-3.5); Glucose 136 mg/dL (80-115); Potassium 4.1 mmol/L (3.5-5.1); Protein, Total 6.7 g/dL (5.8-8.1); Sodium 135 mmol/L (136-145)
[2019-07-22] MEDS: Pantoprazole 40 MG VIAL IVP SCH ×2 (08:07→20:08)
[2019-07-22] MEDS: HYDROcodone/Acetaminophen 10/325 mg Tablet PO PRN ×2 (08:23→20:13)
[2019-07-22] MEDS: HumaLOG 300 UNITS/3 ML VIAL SC PRN ×3 (12:51→20:14)
--- NOTE | 2019-07-22 14:00 | PDOC.HOSPP ---
- Subjective Subjective: No melena overnight. Hb is currently 8. No cp, sob, or other sxs reported. - Objective Vital Signs & Weight: Vital Signs (12 hours) Temp Pulse Resp BP Pulse Ox 07/22/19 08:00 98 07/22/19 07:57 99.3 F 77 16 119/70 98 07/22/19 05:00 98.3 F 74 17 113/68 100 Weight Weight 162 lb 1.6 oz I&O: 07/21/19 07/22/19 07/23/19 06:59 06:59 06:59 Intake Total 2640 Output Total 1250 Balance 1390 Result Diagrams: 07/22/19 05:42 07/22/19 05:43 Additional Labs: Accuchecks 07/22/19 07/22/19 07/22/19 12:08 05:01 00:03 POC Glucose 222 H 138 H 194 H 07/21/19 18:02 POC Glucose 170 H Hospitalist ROS - Review of Systems Respiratory: denies: cough, dry, shortness of breath, hemoptysis, SOB with excertion, pleuritic pain, sputum, wheezing, other Cardiovascular: denies: chest pain, palpitations, orthopnea, paroxysmal noc. dyspnea, edema, light headedness, other Gastrointestinal: denies: nausea, vomiting, abdominal pain, diarrhea, constipation, melena, hematochezia, other Genitourinary: denies: dysuria, frequency, incontinence, hematuria, retention, other - Medication Medications: Active Medications Generic Name Dose Route Start Last Admin Trade Name Freq PRN Reason Stop Dose Admin Hydrocodone Bitart/Acetaminophen 1 tab 07/21/19 18:35 07/22/19 08:23 [place] 10/325 PO 1 tab TIDPRN PRN Administration Mild-Moderate Pain (1-5) Ceftriaxone Sodium 1 gm/ 100 mls @ 200 mls/hr 07/21/19 13:45 07/21/19 14:48 Sodium Chloride IVPB 100 mls Q24HR [place] Administration Sodium Chloride 1,000 mls @ 75 mls/hr 07/21/19 14:00 07/22/19 08:07 Normal Saline 0.9% IV 1,000 mls .[id number] [place] Administration Octreotide Acetate 1,250 mcg/ 251.25 mls @ 10.05 mls/hr 07/21/19 16:45 20:25 Sodium Chloride IVPB 251.25 mls INF [place] Administration 50 MCG/HR Insulin Human Lispro 0 units 07/21/19 13:41 07/22/19 12:51 Humalog SC 3 unit .MILD SLIDING SCALE PRN Administration Mild Correctional Scale Pantoprazole Sodium 40 mg 07/21/19 21:00 07/22/19 08:07 Protonix IVP 40 mg BID [place] Administration - Exam General Appearance: NAD, awake alert Eye: PERRL, anicteric sclera ENT: normocephalic atraumatic, no oropharyngeal lesions, moist mucosa Neck: supple, symmetric, no JVD, no thyromegaly, no lymphadenopathy, no carotid bruit Heart: RRR, no murmur, no gallops, no rubs, normal peripheral pulses Respiratory: CTAB, no wheezes, no rales, no ronchi, normal chest expansion, no tachypnea, normal percussion Gastrointestinal: soft, non-tender, non-distended, normal bowel sounds, no palpable masses, no hepatomegaly, no splenomegaly, no bruit Extremities: no cyanosis, no clubbing, no edema Skin: normal turgor, no lesions, no rashes Neurological: cranial nerve grossly intact, normal sensation to touch, no weakness, no focal deficits, no new deficit Musculoskeletal: normal tone, normal strength, no muscle wasting Psychiatric: normal affect, normal behavior, A&O x 3 Hosp A/P (1) GI bleeding Code(s): K92.2 - GASTROINTESTINAL HEMORRHAGE, UNSPECIFIED Status: Acute (2) Symptomatic anemia Code(s): D64.9 - ANEMIA, UNSPECIFIED Status: Acute (3) History of esophageal varices Code(s): Z87.19 - PERSONAL HISTORY OF OTHER DISEASES OF THE DIGESTIVE SYSTEM Status: Chronic (4) Liver cirrhosis Code(s): K74.60 - UNSPECIFIED CIRRHOSIS OF LIVER Status: Chronic (5) Type 2 diabetes mellitus Status: Chronic (6) Acute kidney injury Code(s): N17.9 - ACUTE KIDNEY FAILURE, UNSPECIFIED Status: Acute Plan: Improved after fluid challenge - Plan Post EGD yesterday and transfusion. No active bleeding but single varices with old blood noted As per GI reccs, will keep patient until tomorrow Continue octreotide Continue protonix Diabetic diet DVT prophylaxis: SCDs Disposition: Observe for any signs of bleeding. Monitor H & H until tomorrow. D/ c when cleared by GI specialist.
[2019-07-22] MEDS: cefTRIAXone\\ROCEPHIN 1 GM in Sodium Chloride 0.9% 100 ML IVPB SCH (14:11)
[2019-07-22] MEDS: Octreotide Acetate 1,250 MCG in Sodium Chloride 0.9% 250 ML 250 ML IVPB SCH (20:09)
[2019-07-23 05:50] LABS: #Basophils 0.1 thou/uL (0.0-0.2); #Eosinphils 0.3 thou/uL (0.0-0.7); #Lymphocytes 1.2 thou/uL (1.20-3.40); #Neutrophils 5.9 thou/uL (1.40-6.50); %Basophils 1.5 % (0.0-1.0); %Lymphocytes 14.3 % (21.0-51.0); %Monocytes 11.2 % (0.0-10.0); Hemoglobin 7.3 g/dL (14.0-18.0); Mean Corpuscular HGB CONC 29.4 g/dL (32.0-36.0); Mean Corpuscular Hemoglobin 23.8 pg (27.0-31.0); Mean Corpuscular Volume 80.8 fL (78.0-98.0); Mean Platelet Volume 8.5 fL (7.4-10.4); Platelet Count 237 thou/uL (130-400); RBC Distribution Width 16.6 % (11.5-14.5); Red Blood Cell (RBC) Count 3.05 mill/uL (4.70-6.10); White Blood Cell (WBC) Count 8.6 thou/uL (4.8-10.8)
[2019-07-23] MEDS: HumaLOG 300 UNITS/3 ML VIAL SC PRN ×2 (07:06→16:38)
--- NOTE | 2019-07-23 08:52 | PDOC.HOSPP ---
- Subjective Subjective: Had a black bowel movement yesterday night. His Hb dropped from 8.2 to 7.3 in the AM. Otherwise he has no other complaints. Vitals are hemodynamically compensated. - Objective Vital Signs & Weight: Vital Signs (12 hours) Temp Pulse Resp BP Pulse Ox 07/23/19 07:47 97.8 F 75 18 123/66 100 07/23/19 05:21 98.2 F 81 20 121/73 99 Weight Weight 162 lb 1.6 oz I&O: 07/22/19 07/23/19 07/24/19 06:59 06:59 06:59 Intake Total 2640 1850 Output Total 1250 Balance 1390 1850 Result Diagrams: 07/23/19 05:13 07/22/19 05:43 Additional Labs: Accuchecks 07/23/19 07/22/19 07/22/19 05:32 20:08 16:30 POC Glucose 202 H 204 H 213 H 07/22/19 12:08 POC Glucose 222 H Hospitalist ROS - Review of Systems Constitutional: denies: fever, chills, sweats, weakness, malaise, other Respiratory: denies: cough, dry, shortness of breath, hemoptysis, SOB with excertion, pleuritic pain, sputum, wheezing, other Cardiovascular: denies: chest pain, palpitations, orthopnea, paroxysmal noc. dyspnea, edema, light headedness, other Gastrointestinal: denies: nausea, vomiting, abdominal pain, diarrhea, constipation, melena, hematochezia, other - Medication Medications: Active Medications Generic Name Dose Route Start Last Admin Trade Name Freq PRN Reason Stop Dose Admin Hydrocodone Bitart/Acetaminophen 1 tab 07/21/19 18:35 07/22/19 20:13 [place] 10/325 PO 1 tab TIDPRN PRN Administration Mild-Moderate Pain (1-5) Ceftriaxone Sodium 1 gm/ 100 mls @ 200 mls/hr 07/21/19 13:45 07/22/19 14:11 Sodium Chloride IVPB 100 mls Q24HR [place] Administration Sodium Chloride 1,000 mls @ 75 mls/hr 07/21/19 14:00 07/22/19 20:08 Normal Saline 0.9% IV 1,000 mls .[id number] [place] Administration Octreotide Acetate 1,250 mcg/ 251.25 mls @ 10.05 mls/hr 07/21/19 16:45 20:09 Sodium Chloride IVPB 251.25 mls INF [place] Administration 50 MCG/HR Insulin Human Lispro 0 units 07/21/19 13:41 07/23/19 07:06 Humalog SC 3 unit .MILD SLIDING SCALE PRN Administration Mild Correctional Scale Pantoprazole Sodium 40 mg 07/21/19 21:00 07/22/19 20:08 Protonix IVP 40 mg BID [place] Administration - Exam General Appearance: NAD, awake alert General - other findings: pale in appearance Eye: PERRL, anicteric sclera ENT: normocephalic atraumatic, no oropharyngeal lesions, moist mucosa Neck: supple, symmetric, no JVD, no thyromegaly, no lymphadenopathy, no carotid bruit Heart: RRR, no murmur, no gallops, no rubs, normal peripheral pulses Respiratory: CTAB, no wheezes, no rales, no ronchi, normal chest expansion, no tachypnea, normal percussion Gastrointestinal: soft, non-tender, non-distended, normal bowel sounds, no palpable masses, no hepatomegaly, no splenomegaly, no bruit Extremities: no cyanosis, no clubbing, no edema Skin: normal turgor, no lesions, no rashes Neurological: cranial nerve grossly intact, normal sensation to touch, no weakness, no focal deficits, no new deficit Musculoskeletal: normal tone, normal strength, no muscle wasting Psychiatric: normal affect, normal behavior, A&O x 3 Hosp A/P (1) GI bleeding Code(s): K92.2 - GASTROINTESTINAL HEMORRHAGE, UNSPECIFIED Status: Acute (2) Symptomatic anemia Code(s): D64.9 - ANEMIA, UNSPECIFIED Status: Acute (3) History of esophageal varices Code(s): Z87.19 - PERSONAL HISTORY OF OTHER DISEASES OF THE DIGESTIVE SYSTEM Status: Chronic (4) Liver cirrhosis Code(s): K74.60 - UNSPECIFIED CIRRHOSIS OF LIVER Status: Chronic (5) Type 2 diabetes mellitus Status: Chronic (6) Acute kidney injury Code(s): N17.9 - ACUTE KIDNEY FAILURE, UNSPECIFIED Status: Acute - Plan Mel[place] overnight, discussed with GI team, Hb now 7.3 will transfuse 2 u PRBC Further reccs per GI Continue octreote Continue protonix Diabetic diet DVT prophylaxis: SCDs Disposition: Transfuse 2 u PRBC. Further reccs per GI.
[2019-07-23] MEDS: Pantoprazole 40 MG VIAL IVP SCH ×2 (09:24→20:11)
[2019-07-23] MEDS: Sodium Chloride 0.9% 1,000 ML IV SCH (09:25)
[2019-07-23] MEDS: HYDROcodone/Acetaminophen 10/325 mg Tablet PO PRN (10:29)
--- NOTE | 2019-07-23 10:51 | PRG ---
DATE OF SERVICE: 07/23/2019 SUBJECTIVE: This 69-year-old male, hospitalized over the weekend because of melena and anemia due to blood loss. He is noted to have liver cirrhosis, portal gastropathy, and esophageal varices from before. The patient underwent EGD and was found to have a short-segment distal esophageal rings, nonbleeding and also portal hypertensive gastropathy. He is on oral IV octreotide and was doing well last night. This morning, he had some black tarry stool and his blood count dropped down to 7.3 from 8.2. He has no abdominal pain. No nausea or vomiting. OBJECTIVE: GENERAL: Appears comfortable. He is awake, alert, and communicative. VITAL SIGNS: Afebrile. Pulse is 75 and blood pressure 123/63. CARDIOVASCULAR SYSTEM: First and second heart sounds heard. LUNGS: Clear to auscultation. ABDOMEN: Soft. No organomegaly. No tenderness. No masses. LABORATORY DATA: Labs from this morning; WBC 8600, hemoglobin is 7.3, and hematocrit 24.6. IMPRESSION: 1. Liver cirrhosis. 2. Chronic hepatitis C status post treatment. 3. Esophageal varices. 4. Possible gastric varices. 5. Portal hypertensive gastropathy. RECOMMENDATIONS: 1. Continue IV octreotide. 2. Unfortunately, the patient had a full meal today. An EGD could not be done today. We will plan for EGD tomorrow morning. Job ID: [id number]
[2019-07-23] MEDS: cefTRIAXone\\ROCEPHIN 1 GM in Sodium Chloride 0.9% 100 ML IVPB SCH (15:22)
[2019-07-23] MEDS ORDERED: diphenhydrAMINE 25 MG in Sodium Chloride 0.9% 50 ML IVPB SCH (16:00)
[2019-07-23] MEDS ORDERED: diphenhydrAMINE 50 MG/ML VIAL IVP SCH (16:15)
[2019-07-23] MEDS ORDERED: methylPREDNISolone Sod Succ 40 MG VIAL IVP SCH (17:45)
[2019-07-24] MEDS: HYDROcodone/Acetaminophen 10/325 mg Tablet PO PRN ×3 (03:19→20:33)
[2019-07-24] MEDS: Sodium Chloride 0.9% 1,000 ML IV SCH ×3 (03:22→17:48)
[2019-07-24] MEDS: Octreotide Acetate 1,250 MCG in Sodium Chloride 0.9% 250 ML 250 ML IVPB SCH (04:01)
[2019-07-24] MEDS ORDERED: Promethazine HCl 25 MG/ML VIAL IM PRN (10:21)
[2019-07-24] MEDS ORDERED: Ondansetron HCl/PF 4 MG/2 ML Vial IVP PRN (10:21)
[2019-07-24] MEDS ORDERED: Promethazine HCl 25 MG/ML VIAL SLOW IVP PRN (10:21)
[2019-07-24] MEDS ORDERED: PROPOFOL 200 MG/20 ML VIAL ONE (10:58)
[2019-07-24 11:27] LABS: Hemoglobin 7.9 g/dL (14.0-18.0); Mean Corpuscular HGB CONC 30.9 g/dL (32.0-36.0); Mean Corpuscular Hemoglobin 24.8 pg (27.0-31.0); Mean Corpuscular Volume 80.1 fL (78.0-98.0); Mean Platelet Volume 8.4 fL (7.4-10.4); Platelet Count 178 thou/uL (130-400); RBC Distribution Width 16.3 % (11.5-14.5); Red Blood Cell (RBC) Count 3.19 mill/uL (4.70-6.10); White Blood Cell (WBC) Count 7.4 thou/uL (4.8-10.8)
[2019-07-24 11:55] LABS: #Monocytes 0.8 thou/uL (0.11-0.59); #Neutrophils 5.6 thou/uL (1.40-6.50); %Basophils 0.4 % (0.0-1.0); %Eosinophils 0.5 % (0.0-10.0); %Lymphocytes 12.8 % (21.0-51.0); %Monocytes 10.8 % (0.0-10.0); %Neutrophils 75.5 % (42.0-75.0); Band 1 % (5-11); Hypersemented Neutrophil SLIGHT; Hypochromia SLIGHT = 6-15 cells (100X) (0-5/hpf); Lymphocytes 11 % (21-51); MDiff Complete? YES; Monocytes 12 % (0-10); Neutrophil 75 % (42-75); Platelet Morphology Comment Appears Adequate
[2019-07-24] MEDS: HumaLOG 300 UNITS/3 ML VIAL SC PRN ×2 (12:41→17:43)
[2019-07-24] MEDS: Pantoprazole 40 MG VIAL IVP SCH ×2 (12:41→20:25)
[2019-07-24] MEDS: cefTRIAXone\\ROCEPHIN 1 GM in Sodium Chloride 0.9% 100 ML IVPB SCH (13:54)
--- NOTE | 2019-07-24 14:52 | OP ---
DATE OF PROCEDURE: 07/24/2019 [employer]EX TRADER SURGEON: None. PROCEDURE PERFORMED: Esophagogastroduodenoscopy, diagnostic. INDICATION: 1. Anemia. 2. Melena. 3. Cirrhosis with a history of esophageal varices and prior banding. MEDICATIONS: See Anesthesia record. FINDINGS: After discussion of the risks, benefits, and alternatives of the procedure, informed consent was obtained and witnessed. Pre-endoscopic cardiopulmonary examination was satisfactory. Time-out was performed before sedation was achieved. Sedation was achieved with Anesthesia assistance in the endoscopy unit. A Pentax adult upper endoscope was placed into the oropharynx and passed through the cricopharyngeus under direct visualization. The proximal mid esophageal mucosa appeared normal throughout. In the distal esophagus, there was scarring consistent with prior variceal band ligation. There were a couple of tiny residual distal varices, but these flattened out completely with air insufflation. There was no stigmata of any hemorrhage in this area. The endoscope was advanced through the GE junction and into the stomach. Forward and retroflexed views of the entire gastric mucosa were obtained. There were mild changes of portal hypertensive gastropathy in the gastric fundus with characteristic mosaic pattern and submucosal hemorrhage. However, there was no evidence of any active bleeding. No old blood or active bleeding in the stomach. No bleeding lesion in the stomach. No ulceration or erosions. No AVMs visualized. The endoscope was advanced through the pylorus and into the first, second, and third portions of the duodenum, which all appeared normal. The upper endoscope was completely withdrawn and the patient allowed to recover. The patient tolerated the procedure well. There were no immediate postprocedure complications. IMPRESSION: 1. Scarring in the distal esophagus from prior variceal band ligation. No stigmata of bleeding. 2. Portal hypertensive gastropathy in the gastric fundus, nonbleeding. 3. Otherwise normal EGD. RECOMMENDATION: 1. Advance diet. 2. Trend H and H tomorrow. 3. The patient may benefit from nonselective beta villa on hospital discharge. Job ID: [id number]
--- NOTE | 2019-07-24 17:58 | PDOC.HOSPP ---
- Subjective Subjective: Had EGD today. Was seen after procedure. Reports that before procedure he had a lot of diarrhea, otherwise no sxs. - Objective Vital Signs & Weight: Vital Signs (12 hours) Temp Pulse Resp BP Pulse Ox 07/24/19 11:00 98 F 79 16 134/77 97 07/24/19 08:00 99 07/24/19 07:26 98.1 F 77 20 118/63 99 Weight Weight 162 lb 1.6 oz I&O: 07/23/19 07/24/19 07/25/19 06:59 06:59 06:59 Intake Total 1850 175 350 Balance 1850 175 350 Result Diagrams: 07/24/19 11:12 07/22/19 05:43 Additional Labs: Accuchecks 07/24/19 07/24/19 07/24/19 15:47 12:10 06:53 POC Glucose 194 H 237 H 235 H 07/23/19 20:37 POC Glucose 287 H Hospitalist ROS - Review of Systems Constitutional: denies: fever, chills, sweats, weakness, malaise, other Respiratory: denies: cough, dry, shortness of breath, hemoptysis, SOB with excertion, pleuritic pain, sputum, wheezing, other Cardiovascular: denies: chest pain, palpitations, orthopnea, paroxysmal noc. dyspnea, edema, light headedness, other Gastrointestinal: denies: nausea, vomiting, abdominal pain, diarrhea, constipation, melena, hematochezia, other - Medication Medications: Active Medications Generic Name Dose Route Start Last Admin Trade Name Freq PRN Reason Stop Dose Admin Hydrocodone Bitart/Acetaminophen 1 tab 07/21/19 18:35 07/24/19 13:54 [place] 10/325 PO 1 tab TIDPRN PRN Administration Mild-Moderate Pain (1-5) Sodium Chloride 1,000 mls @ 75 mls/hr 07/21/19 14:00 07/24/19 12:41 Normal Saline 0.9% IV Not Given .[id number] [place] Octreotide Acetate 1,250 mcg/ 251.25 mls @ 10.05 mls/hr 07/21/19 16:45 04:01 Sodium Chloride IVPB 251.25 mls INF [place] Administration 50 MCG/HR Insulin Human Lispro 0 units 07/21/19 13:41 07/24/19 12:41 Humalog SC 3 unit .MILD SLIDING SCALE PRN Administration Mild Correctional Scale Pantoprazole Sodium 40 mg 07/21/19 21:00 07/24/19 12:41 Protonix IVP 40 mg BID [place] Administration - Exam General Appearance: NAD, awake alert Eye: PERRL, anicteric sclera ENT: normocephalic atraumatic, no oropharyngeal lesions, moist mucosa Neck: supple, symmetric, no JVD, no thyromegaly, no lymphadenopathy, no carotid bruit Heart: RRR, no murmur, no gallops, no rubs, normal peripheral pulses Respiratory: CTAB, no wheezes, no rales, no ronchi, normal chest expansion, no tachypnea, normal percussion Gastrointestinal: soft, non-tender, non-distended, normal bowel sounds, no palpable masses, no hepatomegaly, no splenomegaly, no bruit Extremities: no cyanosis, no clubbing, no edema Skin: normal turgor, no lesions, no rashes Neurological: cranial nerve grossly intact, normal sensation to touch, no weakness, no focal deficits, no new deficit Musculoskeletal: normal tone, normal strength, no muscle wasting Psychiatric: normal affect, normal behavior, A&O x 3 Hosp A/P (1) GI bleeding Code(s): K92.2 - GASTROINTESTINAL HEMORRHAGE, UNSPECIFIED Status: Acute (2) Symptomatic anemia Code(s): D64.9 - ANEMIA, UNSPECIFIED Status: Acute (3) History of esophageal varices Code(s): Z87.19 - PERSONAL HISTORY OF OTHER DISEASES OF THE DIGESTIVE SYSTEM Status: Chronic (4) Liver cirrhosis Code(s): K74.60 - UNSPECIFIED CIRRHOSIS OF LIVER Status: Chronic (5) Type 2 diabetes mellitus Status: Chronic (6) Acute kidney injury Code(s): N17.9 - ACUTE KIDNEY FAILURE, UNSPECIFIED Status: Acute - Plan Recieved 2 u prbc yesterday Further reccs per GI Continue octreote Continue protonix D/c ceftriaxone, clinically no sxs, no active variceal bleeding detected Diabetic diet DVT prophylaxis: SCDs Disposition: Dispo as per GI. Observing another night to insure no rebleeds. Monitor Hb in the AM.
[2019-07-25] MEDS: Sodium Chloride 0.9% 1,000 ML IV SCH ×2 (04:52→11:30)
[2019-07-25] MEDS: Octreotide Acetate 1,250 MCG in Sodium Chloride 0.9% 250 ML 250 ML IVPB SCH (04:52)
[2019-07-25] MEDS: HumaLOG 300 UNITS/3 ML VIAL SC PRN ×3 (05:53→16:57)
[2019-07-25 07:06] LABS: #Basophils 0.2 thou/uL (0.0-0.2); #Eosinphils 0.3 thou/uL (0.0-0.7); #Lymphocytes 1.1 thou/uL (1.20-3.40); #Monocytes 0.9 thou/uL (0.11-0.59); #Neutrophils 4.7 thou/uL (1.40-6.50); %Basophils 2.2 % (0.0-1.0); %Eosinophils 3.7 % (0.0-10.0); %Lymphocytes 15.2 % (21.0-51.0); %Monocytes 12.3 % (0.0-10.0); %Neutrophils 66.7 % (42.0-75.0); Mean Corpuscular HGB CONC 31.8 g/dL (32.0-36.0); Mean Corpuscular Hemoglobin 25.8 pg (27.0-31.0); Mean Corpuscular Volume 81.1 fL (78.0-98.0); Mean Platelet Volume 9.3 fL (7.4-10.4); Platelet Count 224 thou/uL (130-400); RBC Distribution Width 16.4 % (11.5-14.5); Red Blood Cell (RBC) Count 3.47 mill/uL (4.70-6.10); White Blood Cell (WBC) Count 7.1 thou/uL (4.8-10.8)
[2019-07-25 07:20] LABS: Anion Gap 11 mmol/L (10-20); BUN (Urea Nitrogen) 10 mg/dL (8.4-25.7); Calc. Creatinine Clearance 85 mL/min (70-130); Calcium 7.4 mg/dL (7.8-10.44); Carbon Dioxide 22 mmol/L (23-31); Chloride 105 mmol/L (98-107); Estimated GFR-MDRD 89; Glucose 225 mg/dL (80-115); Potassium 3.7 mmol/L (3.5-5.1); Sodium 134 mmol/L (136-145)
[2019-07-25] MEDS: Pantoprazole 40 MG VIAL IVP SCH (08:32)
[2019-07-25] MEDS: HYDROcodone/Acetaminophen 10/325 mg Tablet PO PRN ×2 (08:32→15:39)
[2019-07-25] MEDS ORDERED: Furosemide 40 MG TAB PO SCH (11:56)
[2019-07-25] MEDS ORDERED: Spironolactone 100 MG TAB PO SCH (11:57)
[2019-07-25] MEDS ORDERED: Polyethylene Glycol 3350 17 GM Packet PO PRN (12:25)
--- NOTE | 2019-07-25 14:44 | PDOC.HOSPP ---
- Subjective Encounter Date: 07/25/19 Encounter Time: 09:30 Subjective: no bleeding per rectum or abd pain c/o abd distention no prior paracentesis - Objective Vital Signs & Weight: Vital Signs (12 hours) Temp Pulse Resp BP BP Pulse Ox 07/25/19 12:00 98.0 F 76 18 128/77 98 07/25/19 08:00 98.2 F 79 18 117/71 100 07/25/19 04:52 97.9 F 69 16 105/57 L 69 L Weight Weight 162 lb 1.6 oz I&O: 07/24/19 07/25/19 07/26/19 06:59 06:59 06:59 Intake Total 175 350 Balance 175 350 Result Diagrams: 07/25/19 06:08 07/25/19 06:08 Additional Labs: Accuchecks 07/25/19 07/25/19 07/24/19 12:14 04:53 21:23 POC Glucose 234 H 247 H 308 H 07/24/19 15:47 POC Glucose 194 H Hospitalist ROS - Medication Medications: Active Medications Generic Name Dose Route Start Last Admin Trade Name Freq PRN Reason Stop Dose Admin Hydrocodone Bitart/Acetaminophen 1 tab 07/21/19 18:35 07/25/19 08:32 [place] 10/325 PO 1 tab TIDPRN PRN Administration Mild-Moderate Pain (1-5) Sodium Chloride 1,000 mls @ 75 mls/hr 07/21/19 14:00 07/25/19 11:30 Normal Saline 0.9% IV Not Given .[id number] [place] Octreotide Acetate 1,250 mcg/ 251.25 mls @ 10.05 mls/hr 07/21/19 16:45 04:52 Sodium Chloride IVPB 251.25 mls INF [place] Administration 50 MCG/HR Insulin Human Lispro 0 units 07/21/19 13:41 07/25/19 12:13 Humalog SC 3 unit .MILD SLIDING SCALE PRN Administration Mild Correctional Scale Pantoprazole Sodium 40 mg 07/21/19 21:00 07/25/19 08:32 Protonix IVP 40 mg BID [place] Administration - Exam General Appearance: awake alert Eye: PERRL, anicteric sclera ENT: no oropharyngeal lesions, moist mucosa Neck: supple, no JVD Heart: RRR, no murmur Respiratory: no wheezes, no rales Gastrointestinal: soft, non-tender, normal bowel sounds Gastrointestinal - other findings: ascites+ Extremities: no cyanosis, no edema Neurological: cranial nerve grossly intact, no focal deficits Psychiatric: normal affect, A&O x 3 Hosp A/P (1) Acute blood loss anemia Code(s): D62 - ACUTE POSTHEMORRHAGIC ANEMIA Status: Acute (2) GI bleeding Code(s): K92.2 - GASTROINTESTINAL HEMORRHAGE, UNSPECIFIED Status: Acute Qualifiers: GI bleed type/associated pathology: unspecified gastrointestinal hemorrhage type Qualified Code(s): K92.2 - Gastrointestinal hemorrhage, unspecified (3) Acute kidney injury Code(s): N17.9 - ACUTE KIDNEY FAILURE, UNSPECIFIED Status: Resolved (4) History of esophageal varices Code(s): Z87.19 - PERSONAL HISTORY OF OTHER DISEASES OF THE DIGESTIVE SYSTEM Status: Chronic (5) Type 2 diabetes mellitus Status: Chronic Qualifiers: Diabetes mellitus senior living insulin use: without intermediate designer use (6) Cirrhosis of liver with ascites Code(s): K74.60 - UNSPECIFIED CIRRHOSIS OF LIVER; R18.8 - OTHER ASCITES Status : Chronic Qualifiers: Hepatic cirrhosis type: unspecified hepatic cirrhosis Qualified Code(s): K74.60 - Unspecified cirrhosis of liver; R18.8 - Other ascites (7) Portal hypertension Code(s): K76.6 - PORTAL HYPERTENSION Status: Chronic - Plan taper and dc octreotide by this evening on protonix bid dc iv fluids start home dose lasix, spironolactone. possible dc later this evening if stable hemostable
[2019-07-25] MEDS ORDERED: metFORMIN 500 MG TAB PO SCH (17:00)
[2019-07-25 17:08] VITALS: BP 113/80; TEMP 98
--- NOTE | 2019-07-25 18:24 | DIS ---
DATE OF ADMISSION: 07/21/2019 DATE OF DISCHARGE: 07/25/2019 DISCHARGE DISPOSITION: Home. PRIMARY DISCHARGE DIAGNOSES: Gastrointestinal bleed with no obvious source found on upper endoscopy; prior history of portal gastropathy ; history of cirrhosis; acute blood loss anemia with 4 units of packed cell transfusions done; diabetes mellitus, type 2; acute kidney injury on admission, resolved. PROCEDURES DONE DURING HOSPITALIZATION: Upper endoscopy done by Dr. Hebert Middleton on 07/24/2019 showed scarring in the distal esophagus from prior variceal band ligation. No stigmata of bleeding in the esophagus. Portal hypertensive gastropathy in the gastric fundus, which were nonbleeding. Otherwise, normal endoscopy. The patient had an initial upper endoscopy done on 07/21/[address] Mir, which showed normal duodenum, some flecks of small old blood seen in stomach with no active bleeding. Portal hypertensive gastropathy. One single gastric varices over the gastric cardia versus hypertrophic mucosa. Small varicosities not visualized after band. Distal esophageal rings and not resected. Stool occult blood was negative on the . Discharge H and H of 9 and 28, platelet count 224, MCV is 81 on the day of discharge. Admitting H and H were 6.4 and 20, and it dropped down to 5.7 on the same day at 3:30 p.m. PT/INR of 14.8 and 1.2, PTT 28. Discharge BUN and creatinine are 10 and 0.8. Initial BUN and creatinine were 55 and 1.32. Serum bicarb was 15. AST 36, ALT 38, alkaline phosphatase 78, total bilirubin 0.3. INPATIENT CONSULT: Dr. Mir and Dr. Hebert Middleton for Gastroenterology. DISCHARGE PLAN: The patient to follow up with Dr. Hebert Middleton in 2 to [address] Peralta, his primary care physician in 1 week. DISCHARGE MEDICATIONS: 1. Protonix 40 mg p.o. twice daily. 2. Spironolactone 50 mg p.o. daily. 3. Lasix 20 mg daily. 4. MiraLAX 17 g daily p.r.n. 5. Metformin 1000 mg twice daily. 6. [place] p.r.n. for pain. 7. Amaryl 4 mg p.o. daily. ALLERGIES: CODEINE. BRIEF COURSE DURING HOSPITALIZATION: The patient initially came to the ER on the with complaints of black stools. His initial hemoglobin was 6 g. He has known history of cirrhosis with prior treatment for hepatitis C. Initial upper endoscopy done showed specks of blood with varices seen. He had a second-look endoscopy done on the by Dr. Hebert Middleton with no active bleeding. The patient got transfused a total of 4 units of packed cell during his stay here. At the time of discharge, his H and H are 9 and 28, and the patient is wanting to go home. The patient was placed on octreotide drip and Protonix drip initially. His octreotide drip was slowly weaned and discontinued. The patient was asked to stay overnight today and then go home in the morning, but the patient was very eager to go home and is being discharged today. Please see a [id number] documentation for the day of discharge on [employer]. Prior to discharge, he was tolerating oral solid diet and is ambulating. Job ID: [id number]
[2019-07-26] MEDS ORDERED: Glimepiride 4 MG TAB PO SCH (07:30)
[2019-07-26] MEDS ORDERED: Spironolactone 25 MG TAB PO SCH (08:00)
[2019-07-26] MEDS ORDERED: Furosemide 20 MG TAB PO SCH (09:00)
--- NOTE | 2019-07-26 10:44 | PRG ---
DATE OF SERVICE: 07/22/2019 SUBJECTIVE: This is a 69-year-old male with chronic hepatitis C, treated with Harvoni and his HCV RNA became negative. The patient with liver cirrhosis, portal hypertension, and also esophageal . The patient has had esophageal banding done in the past. The patient presents to the ER yesterday with black tarry stools and anemia. He underwent EGD and was found to have basically portal hypertensive gastropathy and gastritis. No active bleeding seen. The patient is on IV octreotide. He has had no stool through the night and this morning. He had abdominal pain, nausea, and vomiting. He has received 2 units of packed RBCs. His hematocrit 26.1. OBJECTIVE: GENERAL: Appears comfortable, in no acute distress. VITAL SIGNS: His vital signs are stable, afebrile, pulse is 77, and blood pressure 119/70. HEENT: Conjunctivae are clear. CARDIOVASCULAR SYSTEM: First and second heart sounds heard. LUNGS: Clear to auscultation. ABDOMEN: Soft. Abdomen is nontender. No organomegaly . Bowel sounds normal. EXTREMITIES: Reveal no edema. RECOMMENDATIONS: 1. Continue diabetic diet. 2. Follow up hemoglobin and hematocrit. 3. May taper off tomorrow. Job ID: [id number]
--- NOTE | 2019-07-26 12:21 | PRG ---
DATE OF SERVICE: 07/25/2019 SUBJECTIVE: This is a very pleasant 69-year-old male with liver cirrhosis due to chronic hepatitis C. The patient has had treatment with Harvoni and his hep C RNA came back negative. The patient admitted to hospital on Monday with melena and anemia. The emergent EGD done on Monday night, which revealed no pathology, for portal hypertensive gastropathy and possibly one small gastric varix. The patient is on IV octreotide and received IV fluids. He had an episode of melena on Monday evening. He got 2 units of blood. He underwent EGD by Dr. Hebert Middleton yesterday. Dr. Hebert Middleton did not see anything new in the EGD. No active bleeding seen. He had done well overnight and is having more of brownish stool. Blood count is stable around hemoglobin 9 g, hematocrit is 25.8. The patient has stopped taking Lasix and aldactone over the last several days and he is having abdominal distention and possibly . PHYSICAL EXAMINATION: GENERAL: Appears very comfortable. VITAL SIGNS: He is afebrile. Vital signs are stable. Pulse is 79, blood pressure 117/71. CARDIOVASCULAR: First and second heart sounds heard. LUNGS: Clear to auscultation. ABDOMEN: Mildly distended but soft. Abdomen is nontender. No organomegaly. No masses. EXTREMITIES: Reveal no edema. LABORATORY DATA: His chem-7 is actually normal. BUN is 10, creatinine 0.5, glucose 225. Lytes are normal. RECOMMENDATION: 1. Lasix 40 mg p.o. now and also aldactone 100 mg p.o. now. 2. Taper of octreotide and hopefully the patient can be discharged home today. He is advised to take propranolol 20 mg once a day from now on. He will continue will come back to see me early next week in my office. Job ID: [id number]
== END 2019-07-25 18:24 | disposition home or self-care (01) | DRG 378 ==
LOC: ERS 11:10 → T4-B 14:20
PROVIDERS: ADMIT Internal Medicine; ATTEND Internal Medicine
PROC: 30233N1 Transfusion of Nonautologous Red Blood Cells into Peripheral Vein, Percutaneous Approach (ICD-10-PCS; 2019-07-21)
PROC: 0DJ08ZZ Inspection of Upper Intestinal Tract, Via Natural or Artificial Opening Endoscopic (ICD-10-PCS; principal; 2019-07-24)
DX: K92.2 Gastrointestinal hemorrhage, unspecified (principal); K76.6 Portal hypertension; D62 Acute posthemorrhagic anemia; N17.9 Acute kidney failure, unspecified; K31.89 Other diseases of stomach and duodenum; K74.60 Unspecified cirrhosis of liver; G89.29 Other chronic pain; B18.2 Chronic viral hepatitis C; K20.9 Esophagitis, unspecified; M19.90 Unspecified osteoarthritis, unspecified site; E11.9 Type 2 diabetes mellitus without complications; Z88.8 Allergy status to other drugs, medicaments and biological substances
CPT/HCPCS: 36415; 36416; 36430; 80048; 80053; 82274; 83690; 84484; 85025; 85610; 85730; 86850; 86900; 86901; 93005; 94760; C9113; J0696; J1200; J2354; J2704; J2920; J3490; J7050; P9016